=== PATIENT | female | born 1935 | race Caucasian/White ===

== ENCOUNTER 2018-10-26 15:11 | Inpatient (IN) | payer OTHER, MEDICARE ==
--- NOTE | 2018-10-26 15:17 | PDOC ---
Rapid Medical Evaluation Time Seen by Provider: 10/26/18 15:14 Medical Evaluation: Allergies Allergy/AdvReac Type Severity Reaction Status Date / Time No Known Drug Allergies Allergy Unknown Verified 08/01/12 11:42 MOLD Allergy RESP Uncoded 08/01/12 11:42 SYMPTOMS lactose intolerance AdvReac Unknown Difficulty Uncoded 08/01/12 11:42 Breathing 10/26/18 15:14 I have performed a brief in-person evaluation of this patient. The patient presents with a chief complaint of: Sent in by PCP Dr Kc for work up of progressive SOB Pertinent physical exam findings: SOB conversationally SOB I have ordered the following:Nebs, SOB, cardiac w/u labs septic W/U 10/26/18 15:17 Discharge Disposition - Diagnosis SOB (shortness of breath) - Referrals - Patient Instructions - Post Discharge Activity
[2018-10-26] MEDS ORDERED: ALBUTEROL SO4 2.5/IPRATROPIUM 0.5 INH SOL 3 ML VIAL.NEB. NEB ONE ×2 (15:44→16:24)
[2018-10-26 15:49] LABS: EOS % 0.2 % (0-4.5); HEMATOCRIT 34.2 % (32.4-45.2); HEMOGLOBIN 11.6 GM/dL (10.7-15.3); LYMPH % 9.1 % (8-40); MCH 28.9 pg (25.7-33.7); MCHC 33.9 g/dl (32.0-36.0); MEAN CELL VOLUME 85.3 fl (80-96); MEAN PLT VOLUME 8.5 fl (7.5-11.1); MONO % 5.7 % (3.8-10.2); PLATELET COUNT 229 K/MM3 (134-434); RBC 4.01 M/mm3 (3.60-5.2); RDW 14.8 % (11.6-15.6)
[2018-10-26] MEDS: ALBUTEROL SO4 2.5/IPRATROPIUM 0.5 INH SOL 3 ML VIAL.NEB. NEB SCH ×5 (15:51→20:45)
[2018-10-26 15:52] LABS: VENOUS PH 7.37 (7.31-7.41); VENOUS PO2 19.5 mmHg (30-40)
--- NOTE | 2018-10-26 16:06 | PDOC ---
History of Present Illness <Stefany Moody - Last Filed: 10/26/18 18:15> - General History Source: Patient Exam Limitations: No Limitations - History of Present Illness Initial Comments: 10/26/18 18:02 The patient is 82 year old female with a significant past medical history of chronic asthma, COPD not on O2, DM type 2, HTN, Arthritis, TB s/p rt upper lobectomy and CAD s/p CABG who presents to the ER from Dr. Osullivan office for 1 month of progressive malaise and generalized weakness. The patient notes that she has been experiencing SOB and respiratory distress for several days but worsened yesterday. The patient notes her SOB is worsened by talking and exertion. The patient notes she has been endorsing Left rib cage pain worse with movement/coughing, chest pain, chills, and productive yellow cough since this morning, secondary to her symptoms. The patient notes she had a low grade fever of 99.7 at home. The patient states she did not take any pain medication at home. No recent abx. no environmental triggers, does have allergies to mold and gets immunotherapy shots Q3 weeks with Dr Lazcano. Denies N, V, D, abdominal pain, bladder and bowel problems, leg swelling, No sick contacts or travel. No new changes in medications. Allergies: NKDA Past Medical History: chronic asthma, COPD, DM, HTN, Arthritis, TB and CABG Social history: Lives with family. No smoking. No alcohol. No illicit drugs. Surgical history: CABG, Rt LOBECTOMY PMD: Chris Lang 10/26/18 18:11 10/27/18 18:49 <Griselda Woods - Last Filed: 10/27/18 18:51> - General Chief Complaint: Shortness of Breath Stated Complaint: SENT BY PCP Time Seen by Provider: 10/26/18 15:14 Past History <Stefany Moody - Last Filed: 10/26/18 18:15> - Past Medical History Anemia: No Asthma: Yes Cancer: No Cardiac Disorders: Yes COPD: Yes Diabetes: Yes HTN: Yes Hypercholesterolemia: Yes Kidney Stones: Yes - Surgical History Cardiac Surgery: Yes (CABG) Cholecystectomy: Yes Lung Surgery: Yes (R. Lobectomy) - Suicide/Smoking/Psychosocial Hx Smoking Status: Yes Smoking History: Former smoker Have you smoked in the past 12 months: No Number of Cigarettes Smoked Daily: 0 Cigars Per Day: 0 Information on smoking cessation initiated: No Hx Alcohol Use: No Drug/Substance Use Hx: No Substance Use Type: Alcohol Hx Substance Use Treatment: No <Griselda Woods - Last Filed: 10/27/18 18:51> - Past Medical History Allergies/Adverse Reactions: Allergies Allergy/AdvReac Type Severity Reaction Status Date / Time No Known Drug Allergies Allergy Unknown Verified 10/26/18 15:14 MOLD Allergy RESP Uncoded 10/26/18 15:14 SYMPTOMS lactose intolerance AdvReac Unknown Difficulty Uncoded 10/26/18 15:14 Breathing Home Medications: Ambulatory Orders Unobtainable 10/26/18 Review of Systems - Review of Systems Able to Perform ROS?: Yes Comments:: 10/26/18 18:04 Review of systems Constitutional: (+) chills (+) low grade fever at home. (+) fatigue and weakness. HEENT: no headache or dizziness. No congestion. No visual/hearing disturbances. No sore throat, no ear pain. +chronic hoarse voice. CVS: no syncope. +chest pain. Resp: (+)sob. (+) productive cough. No wheezing or hemoptysis Gastrointestinal: no abdominal pain, nausea or vomiting. Genitourinary: no urinary sx, hematuria. MUSCULOSKELETAL:No joint pain and swelling. No neck or back pain. SKIN: no redness or skin changes, no discharge, no rash. No wounds. Hematologic: no easy bruising/bleeding. NEUROLOGIC: No headache, dizziness, LOC or altered mental status. No weakness, numbness or tingling. Allergic/Immunologic: no allergies All other systems reviewed and negative, or as documented in HPI. <Griselda Woods - Last Filed: 10/27/18 18:51> *Physical Exam - Vital Signs Last Vital Signs Temp Pulse Resp BP Pulse Ox 98.7 F 118 H 22 H 158/62 97 10/26/18 15:16 10/26/18 15:16 10/26/18 15:16 10/26/18 15:16 10/26/18 15:16 <Stefany Moody - Last Filed: 10/26/18 18:15> - Vital Signs Last Vital Signs Temp Pulse Resp BP Pulse Ox 98.7 F 118 H 22 H 158/62 97 10/26/18 15:16 10/26/18 15:16 10/26/18 15:16 10/26/18 15:16 10/26/18 15:16 - Physical Exam Comments: 10/26/18 18:12 Physical exam: General: Well appearing, awake and alert, NAD. HEENT: NCAT, PERRL, EOMI, clear conjunctiva, anicteric, moist mucous membranes , clear oropharynx, no oral lesions.. high pitched phonation. Neck: neck supple, FROM Chest: (+)anterior sternotomy scar. (+) right upper lobectomy scar on right upper back. Resp: CTAB, normal and even respirations, no respiratory distress, faint coarse breath sounds with expiration. CVS: +tachycardic, no murmurs, 2+ peripheral pulses throughout, no peripheral edema Abdomen: soft, NTND, no peritoneal signs. Back: nontender, normal inspection and ROM MSK: no edema, DONALD x4, ROM intact. No clubbing or cyanosis. normal bulk and tone. Extremities: no calf tenderness Neuro: alert, oriented appropriately; no focal neurologic deficits Skin: warm and well perfused, cap refill <2 sec, normal color 10/27/18 18:49 <Griselda Woods - Last Filed: 10/27/18 18:51> Moderate Sedation - Procedure Monitoring Vital Signs: Procedure Monitoring Vital Signs Temperature 98.7 F 10/26/18 15:16 Pulse Rate 118 H 10/26/18 15:16 Respiratory Rate 22 H 10/26/18 15:16 Blood Pressure 158/62 10/26/18 15:16 O2 Sat by Pulse Oximetry (%) 97 10/26/18 15:16 <Stefany Moody - Last Filed: 10/26/18 18:15> - Procedure Monitoring Vital Signs: Procedure Monitoring Vital Signs Temperature 98.7 F 10/26/18 15:16 Pulse Rate 118 H 10/26/18 15:16 Respiratory Rate 22 H 10/26/18 15:16 Blood Pressure 158/62 10/26/18 15:16 O2 Sat by Pulse Oximetry (%) 97 10/26/18 15:16 <Griselda Woods - Last Filed: 10/27/18 18:51> Heart Score/ECG Review - ECG Intrepretation Rhythm: Regular Rhythm Comment:: 10/26/18 18:08 EKG normal sinus rhythm, no interval abnormalities, narrow QRS, ST and T wave segments and morphology normal. Nonspecific T wave abnormalities <Griselda Woods - Last Filed: 10/27/18 18:51> ED Treatment Course - LABORATORY CBC & Chemistry Diagram: 10/26/18 15:36 10/26/18 15:36 - ADDITIONAL ORDERS Additional order review: Laboratory Results 10/26/18 10/26/18 10/26/18 15:38 15:36 15:36 PT with INR INR PTT (Actin FS) VBG pH 7.37 POC VBG pCO2 49.0 POC VBG pO2 19.5 L VBG HCO3 27.5 VBG O2 Sat (Sree) 26.4 L VBG Base Excess 2.0 Sodium 132 L Potassium 4.8 Chloride 97 L Carbon Dioxide 25 Anion Gap 10 BUN 24 H Creatinine 1.2 Creat Clearance w eGFR 43.01 Random Glucose 136 H Lactic Acid 1.4 Calcium 8.9 Total Bilirubin 0.5 AST 20 ALT 14 Alkaline Phosphatase 62 Creatine Kinase 66 Troponin I < 0.02 Total Protein 7.2 Albumin 3.5 10/26/18 15:36 PT with INR 12.40 INR 1.05 PTT (Actin FS) 25.7 VBG pH POC VBG pCO2 POC VBG pO2 VBG HCO3 VBG O2 Sat (Sree) VBG Base Excess Sodium Potassium Chloride Carbon Dioxide Anion Gap BUN Creatinine Creat Clearance w eGFR Random Glucose Lactic Acid Calcium Total Bilirubin AST ALT Alkaline Phosphatase Creatine Kinase Troponin I Total Protein Albumin 10/26/18 15:36 RBC 4.01 MCV 85.3 MCHC 33.9 RDW 14.8 MPV 8.5 Neutrophils % 84.0 H Lymphocytes % 9.1 D Monocytes % 5.7 Eosinophils % 0.2 Basophils % 1.0 - Medications Given in the ED: ED Medications Discontinued Medications Generic Name Dose Route Start Last Admin Trade Name Freq PRN Reason Stop Dose Admin Albuterol/Ipratropium 1 amp 10/26/18 15:30 10/26/18 16:31 Duoneb - NEB 10/26/18 16:16 1 amp Q15M TISHA Administration Albuterol/Ipratropium 1 amp 10/26/18 16:30 10/26/18 16:46 Duoneb - NEB 10/26/18 16:46 1 amp Q15M TISHA Administration <Stefany Moody - Last Filed: 10/26/18 18:15> - LABORATORY CBC & Chemistry Diagram: 10/27/18 06:00 10/27/18 06:00 - ADDITIONAL ORDERS Additional order review: Laboratory Results 10/26/18 15:36 VBG pH 7.37 POC VBG pCO2 49.0 POC VBG pO2 19.5 L VBG HCO3 27.5 VBG O2 Sat (Sree) 26.4 L VBG Base Excess 2.0 10/26/18 15:36 RBC 4.01 MCV 85.3 MCHC 33.9 RDW 14.8 MPV 8.5 Neutrophils % 84.0 H Lymphocytes % 9.1 D Monocytes % 5.7 Eosinophils % 0.2 Basophils % 1.0 <Griselda Woods - Last Filed: 10/27/18 18:51> Medical Decision Making - Medical Decision Making 10/26/18 17:57 I, Griselda Woods MD, attest that this document has been prepared under my direction and personally reviewed by me in its entirety. I further attest, that it accurately reflects all work, treatment, procedures and medical decision -making performed by me. See HPI for details DDx. influenza, viral syndrome, PNA, COPD, asthma exac. anemia, infection, electrolyte/metabolic derangements. Vital signs reviewed, no fever orally, but , mildly tachy and tachypneic, will repeat VS and and rectal temp elevated >101 as etiology for tachy Prior notes reviewed, including admissions, discharges and consultations. laboratory results and imaging reviewed, basic labs and lytes wnl, notable for + leukocytosis - unclear etiology. blood cultures pending. flu test_neg UA_unremarkable CXR_ pleural thickening/chronic changes noted. CT chest to further delineate. Cardiac panel_neg trop EKG normal sinus rhythm, no interval abnormalities, narrow QRS, ST and T wave segments and morphology normal. Nonspecific T wave abnormalities ED course - given duonebs and IV steroids. reassess, breathing improved. - IV ceftriaxone and azithromycin - for pna treatment. - tylenol for fever control, septic workup pending, but pt appears nontoxic, only malaised. repeat VS after antipyretics. - spoke with Dr Kc, agree with plan, infectious workup and copd/asthma treatment. admit for continued medical management. 10/26/18 18:21 10/27/18 18:50 <Griselda Woods - Last Filed: 10/27/18 18:51> *DC/Admit/Observation/Transfer - Attestations Scribe Attestion: 10/26/18 18:15 Documentation prepared by Stefany Moody, acting as medical affairs leader for Griselda Woods MD, MD <Stefany Moody - Last Filed: 10/26/18 18:15> - Discharge Dispostion Decision to Admit order: Yes Decision to Admit order Date/Time: 10/26/18 18:13 Decision to Admit Order Category Date Time Status Decision to Admit to Hospital Routine Admission 10/26/18 18:06 Ordered <Griselda Woods - Last Filed: 10/27/18 18:51> Diagnosis at time of Disposition: SOB (shortness of breath), COPD (chronic obstructive pulmonary disease), Pneumonia, Febrile illness Asthma Qualifiers: Asthma severity: unspecified severity Asthma complication type: with acute exacerbation - Discharge Dispostion Condition at time of disposition: Guarded
[2018-10-26 16:12] LABS: INR 1.05 (0.83-1.09); PROTHROMBIN TIME (PATIENT) 12.4 SEC (9.7-13.0)
[2018-10-26 16:15] LABS: ACTIVATED PTT 25.7 SECONDS (25.2-36.5)
[2018-10-26 16:42] LABS: ALBUMIN 3.5 g/dl (3.4-5.0); ALK PHOS 62 U/L (45-117); ANION GAP 10 MMOL/L (8-16); BILIRUBIN,TOTAL 0.5 mg/dL (0.2-1); BLOOD UREA NITROGEN 24 mg/dL (7-18); CALCIUM 8.9 mg/dL (8.5-10.1); CHLORIDE 97 mmol/L (98-107); CO2 25 mmol/L (21-32); CREATININE 1.2 mg/dL (0.55-1.3); GLUCOSE,RANDOM 136 mg/dL (74-106); POTASSIUM 4.8 mmol/L (3.5-5.1); SGOT/AST 20 U/L (15-37); SGPT/ALT 14 U/L (13-61); SODIUM 132 mmol/L (136-145); TOT PROT 7.2 g/dl (6.4-8.2)
[2018-10-26] MEDS ORDERED: CEFTRIAXONE 1,000 MG in DEXTROSE 5%-WATER - 50 ML IVPB ONE (17:58)
[2018-10-26] MEDS ORDERED: AZITHROMYCIN 500 MG TABLET PO ONE (17:58)
[2018-10-26] MEDS ORDERED: SODIUM CHLORIDE 0.9% 500 ML INFUS.BAG IV ONE (18:03)
[2018-10-26] MEDS ORDERED: ACETAMINOPHEN 325 MG TABLET (FP) PO ONE ×2 (18:03→18:20)
[2018-10-26] MEDS ORDERED: methylPREDNISolone NA SUCC 125 MG/2 ML VIAL IVPUSH ONE (18:06)
[2018-10-26] MEDS ORDERED: methylPREDNISolone NA SUCC 125 MG/2 ML VIAL ONE (18:46)
[2018-10-26] MEDS ORDERED: AZITHROMYCIN 250 MG TABLET ONE (18:46)
[2018-10-26] MEDS ORDERED: CEFTRIAXONE 1 GM/50 ML BAG ONE (18:46)
[2018-10-26] MEDS ORDERED: ACETAMINOPHEN 325 MG TABLET (FP) ONE (18:46)
[2018-10-26 19:52] LABS: EPI CELLS 2.8 /HPF (0-5); URINE APPEARANCE CLEAR; URINE BACTERIA 6.426 /hpf (NEGATIVE); URINE BILIRUBIN NEGATIVE (<2.0 mg/dL); URINE CASTS 7 /hpf (0-8); URINE COLOR YELLOW; URINE GLUCOSE (UA) NEGATIVE (NEGATIVE); URINE KETONE 1+ (NEGATIVE); URINE LEUK ESTERASE TRACE (NEGATIVE); URINE NITRITE NEGATIVE (NEGATIVE); URINE PROTEIN NEGATIVE (NEGATIVE); URINE RBC 2 /hpf (0-4); URINE WBC 1 /hpf (0-5)
[2018-10-26] MEDS ORDERED: ACETAMINOPHEN 500 MG TABLET (FP) PO PRN (21:32)
[2018-10-26] MEDS: methylPREDNISolone NA SUCC 40 MG/1 ML VIAL IVPUSH SCH (21:33)
[2018-10-26] MEDS: SODIUM CHLORIDE 1,000 ML IV SCH (21:33)
[2018-10-26] MEDS ORDERED: CEFTRIAXONE 1 GM in DEXTROSE 5%-WATER - 50 ML IVPB ONE (21:45)
[2018-10-27] MEDS: methylPREDNISolone NA SUCC 40 MG/1 ML VIAL IVPUSH SCH ×3 (03:08→18:13)
[2018-10-27] MEDS ORDERED: cefTRIAXone SODIUM 1 GM VIAL ONE (06:13)
[2018-10-27] MEDS ORDERED: DEXTROSE 5%-WATER - 50 ML IVPB ONE (06:14)
[2018-10-27] MEDS ORDERED: CEFTRIAXONE 1 GM in DEXTROSE 5%-WATER - 50 ML IVPB ONE (06:15)
[2018-10-27] MEDS ORDERED: PT OWN MED DRAWER 7, Y5N ONE (06:44)
[2018-10-27] MEDS ORDERED: INSULIN (NOVOLOG) ASPART 100 UNITS/ML 10ML VIAL ONE (07:06)
[2018-10-27 07:27] LABS: MCH 28.5 pg (25.7-33.7); MCHC 33.4 g/dl (32.0-36.0); MEAN CELL VOLUME 85.1 fl (80-96); MEAN PLT VOLUME 8.7 fl (7.5-11.1); PLATELET COUNT 208 K/MM3 (134-434); RBC 3.88 M/mm3 (3.60-5.2); RDW 14.6 % (11.6-15.6); WHITE BLOOD COUNT 13.1 K/mm3 (4.0-10.0)
[2018-10-27] MEDS: ALBUTEROL SO4 2.5/IPRATROPIUM 0.5 INH SOL 3 ML VIAL.NEB. NEB SCH ×3 (07:33→21:40)
[2018-10-27] MEDS: INSULIN SLIDING SCALE (NOVOLOG) 1 VIAL SQ SCH ×4 (07:35→21:17)
[2018-10-27 07:51] LABS: ANION GAP 8 MMOL/L (8-16); BLOOD UREA NITROGEN 21 mg/dL (7-18); CALCIUM 8.4 mg/dL (8.5-10.1); CHLORIDE 100 mmol/L (98-107); CO2 24 mmol/L (21-32); CREATININE 0.9 mg/dL (0.55-1.3); POTASSIUM 4.6 mmol/L (3.5-5.1); SODIUM 132 mmol/L (136-145)
[2018-10-27 08:16] VITALS: BMI 20.1
[2018-10-27] MEDS: PANTOPRAZOLE 40 MG TABLET (FP) PO SCH (09:21)
[2018-10-27] MEDS: AZITHROMYCIN 250 MG TABLET PO SCH (09:25)
[2018-10-27] MEDS: ENOXAPARIN NA (PORCINE) 30 MG/0.3 ML DISP.SYRIN SQ SCH (09:25)
[2018-10-27] MEDS: LISINOPRIL 5 MG TABLET (FP) PO SCH (09:41)
[2018-10-27 09:42] LABS: GLUCOSE,RANDOM 305 mg/dL (74-106)
[2018-10-27] MEDS ORDERED: amLODIPine BESYLATE 2.5 MG TABLET (FP) PO SCH (10:00)
--- NOTE | 2018-10-27 10:56 | HP ---
Admitting History and Physical - Primary Care Physician PCP: Chris Kc - Admission Chief Complaint: feels sick and weak History of Present Illness: The patient is 82 year old female with a significant past medical history of chronic asthma/bronchitis, COPD not on O2, DM type 2, HTN, Arthritis, old TB (s/ p lobectomy in ) and CAD (s/p CABG) who presents to the ER from Dr. Osullivan office c/o 1 month of progressive malaise and generalized weakness along with cough productive of discolored mucous. She did not seek any medical attention in the past month while she began to feel ill as such. The patient notes that she has been experiencing SOB and respiratory distress for several days but worsened [address]. The patient notes her SOB is easily worsened by talking and exertion. The patient notes she has been having Left posterior rib cage pain worse with movement/coughing. The patient notes she had a low grade fever of 99.7 at home. The patient states she did not take any pain medication at home. No recent abx. no environmental triggers, does have allergies to mold ( and gets immunotherapy shots Q3 weeks). She denies N, V, D, abdominal pain, bladder and bowel problems, leg swelling, No sick contacts or travel. No new changes in medications. She last saw an MD in late Sep (Dr Núñez--her remodeler) . 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 ) Psych: Yes: Anxiety, Other (RLS) Musculoskeletal: Yes: Osteoarthritis (spine) ENT: Yes: Sinusitis Endocrine: Yes: Diabetes Mellitus - Past Surgical History Past Surgical History: Yes: CABG, Cataract Removal Additional Past Surgical History: thoracotomy Rt lung - Smoking History Smoking history: Former smoker Have you smoked in the past 12 months: No Aproximately how many cigarettes per day: 0 - Alcohol/Substance Use Hx Alcohol Use: No History of Substance Use: reports: None - Social History Usual Living Arrangement: Yes: Alone ADL: Independent History of Recent Travel: No Home Medications - Allergies Allergies/Adverse Reactions: Allergies Allergy/AdvReac Type Severity Reaction Status Date / Time No Known Drug Allergies Allergy Unknown Verified 10/26/18 15:14 MOLD Allergy RESP Uncoded 10/26/18 15:14 SYMPTOMS lactose intolerance AdvReac Unknown Difficulty Uncoded 10/26/18 15:14 Breathing - Home Medications Home Medications: Ambulatory Orders Unobtainable 10/26/18 Family Disease History - Family Disease History Family History: Unremarkable Review of Systems - Review of Systems Constitutional: reports: Weakness Eyes: reports: No Symptoms HENT: reports: Nasal Congestion Neck: reports: No Symptoms Cardiovascular: reports: Shortness of Breath Respiratory: reports: Cough, SOB, SOB on Exertion, Wheezing Gastrointestinal: reports: No Symptoms Genitourinary: reports: No Symptoms Breasts: reports: No Symptoms Reported Musculoskeletal: reports: No Symptoms Integumentary: reports: No Symptoms Neurological: reports: Weakness Endocrine: reports: No Symptoms Hematology/Lymphatic: reports: No Symptoms Psychiatric: reports: Altered Sleep Pattern (fatigue) Physical Examination Vital Signs: Vital Signs Temperature 98 F 10/26/18 21:00 Pulse Rate 111 H 10/26/18 21:00 Respiratory Rate 18 10/26/18 21:00 Blood Pressure 106/60 10/26/18 21:00 O2 Sat by Pulse Oximetry (%) 94 L 10/26/18 20:02 Findings/Remarks: Vital Signs Temperature 98 F 10/26/18 21:00 Pulse Rate 111 H 10/26/18 21:00 Respiratory Rate 18 10/26/18 21:00 Blood Pressure 106/60 10/26/18 21:00 O2 Sat by Pulse Oximetry (%) 94 L 10/26/18 20:02 found awake and ambulatory in her room fully alert skin--pale eyes--anicteric; non injected oral--no mucosal lesions neck--no masses; raspy voice lungs--bilat sabianism sounds heart--rapid RR chest--sternotomy scar; old Rt throacotomy scar breasts--(declined) abd--soft, BS+, NT ext--no CCE; no acute ischemic changes back--no CVAT neuro--alert in NAD; anxious; speech clear & fluent, no gross motor/sens deficits; no ataxia; cognition grossly intact; thoughts well organized Labs: CBC, BMP 10/27/18 06:00 10/27/18 06:00 Imaging - Results Chest X-ray: Report Reviewed EKG: Report Reviewed Problem List - Problems (1) Asthma Assessment/Plan: presented with labored resp with easy BARRIOS along with malaise, low grade fever; and prod cough. Known Hx of chronic asthma (for which she gets immune Tx). PLAN : IV steroids; Neb TX; IV Abs. Order chest CT Code(s): J45.909 - UNSPECIFIED ASTHMA, UNCOMPLICATED Qualifiers: Asthma severity: unspecified severity Asthma complication type: with acute exacerbation (2) Hypertensive heart disease Assessment/Plan: BPs have been stable and w/o evidence of CHF. BP on low end today. PLAN: cont TIANNA-I only Code(s): I11.9 - HYPERTENSIVE HEART DISEASE WITHOUT HEART FAILURE Qualifiers: Heart failure presence: without heart failure Qualified Code(s): I11.9 - Hypertensive heart disease without heart failure (3) Tachycardia with heart rate 100-120 beats per minute Assessment/Plan: sinus tach; HR a bit over 100; she denies CP or SOB today. Noted low TSH. No signs of CHF. PLAN: check T4 & T3 Code(s): R00.0 - TACHYCARDIA, UNSPECIFIED (4) T2DM (type 2 diabetes mellitus) Assessment/Plan: lonstanding; has been well controlled with Metf & Nateglide at home. PLAN: BGM' s w/ ins coverage; High GLUCOSE to be expected in face of IV steroid infusions Code(s): E11.9 - TYPE 2 DIABETES MELLITUS WITHOUT COMPLICATIONS Qualifiers: Diabetes mellitus complication status: with unspecified complications (5) Restless leg syndrome Assessment/Plan: cont ropinorole Code(s): G25.81 - RESTLESS LEGS SYNDROME (6) Hx of tuberculosis Assessment/Plan: states that she had a tuberculoma removed in the s from the RT lung; with no subsequent recurrent disease. She has not (over the years) ever displayed any Sx of active TB as all her URI bouts responded to anti-bacterial meds. Code(s): Z86.11 - PERSONAL HISTORY OF TUBERCULOSIS (7) Multiple environmental allergies Assessment/Plan: includes certain dusts and molds; as well as some food allergies that serve to worsen her asthma & bronchitis Code(s): Z91.09 - OTH ALLERGY STATUS, OTH THAN TO DRUGS AND BIOLG SUBSTANCES (8) Carotid artery stenosis Assessment/Plan: non critical stenosis; longstanding; cont ASA Code(s): I65.29 - OCCLUSION AND STENOSIS OF UNSPECIFIED CAROTID ARTERY Qualifiers: Laterality: bilateral Qualified Code(s): I65.23 - Occlusion and stenosis of bilateral carotid arteries (9) Abnormal chest xray Assessment/Plan: not new; will get chest CT for better clarity. Code(s): R93.89 - ABNORMAL FINDINGS ON DX IMAGING OF OTH BODY STRUCTURES (10) Lives alone without help available Assessment/Plan: lives in senior housing independantly; however, does not have immediate help in the even of sudden illness Code(s): Z60.2 - PROBLEMS RELATED TO LIVING ALONE (11) History of URI (upper respiratory infection) Assessment/Plan: as described Code(s): Z87.09 - PERSONAL HISTORY OF OTHER DISEASES OF THE RESPIRATORY SYSTEM Assessment/Plan 83 YO acutely ill F with chronic asthma, and multiple c-morbidities. Pt w/o high WBC (prone to URI's) and exacerb of asthma who will need IV therapy as stated. ~~~~~~~~~~~~~~~~~~ Dr Kc
--- NOTE | 2018-10-27 16:41 | EKG ---
Test Reason : Blood Pressure : / mmHG Vent. Rate : 107 BPM Atrial Rate : 107 BPM P-R Int : 156 ms QRS Dur : 086 ms QT Int : 338 ms P-R-T Axes : 076 086 052 degrees QTc Int : 451 ms SINUS TACHYCARDIA WITH PREMATURE ATRIAL COMPLEXES ANTERIOR INFARCT (CITED ON OR BEFORE 16-JUL-2016) ABNORMAL ECG WHEN COMPARED WITH ECG OF 16-JUL-2016 09:41, PREMATURE VENTRICULAR COMPLEXES ARE NO LONGER PRESENT PREMATURE ATRIAL COMPLEXES ARE NOW PRESENT QUESTIONABLE CHANGE IN INITIAL FORCES OF ANTERIOR LEADS Confirmed by MARILU JEAN MD ([id number]) on 10/27/2018 4:40:47 PM Referred By: Confirmed By:MARILU JEAN MD
[2018-10-27] MEDS: SODIUM CHLORIDE 1,000 ML IV SCH (21:17)
[2018-10-27] MEDS: rOPINIRole HCL 0.5 MG TABLET PO SCH (22:27)
[2018-10-28] MEDS: methylPREDNISolone NA SUCC 40 MG/1 ML VIAL IVPUSH SCH ×2 (01:00→10:00)
[2018-10-28] MEDS: SODIUM CHLORIDE 1,000 ML IV SCH ×2 (01:00→22:13)
[2018-10-28] MEDS: INSULIN SLIDING SCALE (NOVOLOG) 1 VIAL SQ SCH ×4 (06:06→22:18)
[2018-10-28 07:31] LABS: HEMATOCRIT 30.2 % (32.4-45.2); HEMOGLOBIN 10.3 GM/dL (10.7-15.3); MCH 28.6 pg (25.7-33.7); MCHC 33.9 g/dl (32.0-36.0); MEAN CELL VOLUME 84.2 fl (80-96); MEAN PLT VOLUME 8.8 fl (7.5-11.1); PLATELET COUNT 222 K/MM3 (134-434); RBC 3.59 M/mm3 (3.60-5.2); RDW 14.4 % (11.6-15.6); WHITE BLOOD COUNT 16.6 K/mm3 (4.0-10.0)
[2018-10-28] MEDS: ALBUTEROL SO4 2.5/IPRATROPIUM 0.5 INH SOL 3 ML VIAL.NEB. NEB SCH ×3 (07:48→20:09)
[2018-10-28 07:52] LABS: ANION GAP 7 MMOL/L (8-16); BLOOD UREA NITROGEN 15 mg/dL (7-18); CALCIUM 8.3 mg/dL (8.5-10.1); CHLORIDE 100 mmol/L (98-107); CO2 26 mmol/L (21-32); CREATININE 0.7 mg/dL (0.55-1.3); GLUCOSE,RANDOM 213 mg/dL (74-106); MAGNESIUM 2.2 mg/dL (1.8-2.4); POTASSIUM 4.2 mmol/L (3.5-5.1); SODIUM 133 mmol/L (136-145)
[2018-10-28] MEDS ORDERED: PT OWN MED DRAWER 7, Y5N ONE (08:00)
[2018-10-28] MEDS: PANTOPRAZOLE 40 MG TABLET (FP) PO SCH (09:59)
[2018-10-28] MEDS: LISINOPRIL 5 MG TABLET (FP) PO SCH (09:59)
[2018-10-28] MEDS: AZITHROMYCIN 250 MG TABLET PO SCH (10:00)
[2018-10-28] MEDS: ENOXAPARIN NA (PORCINE) 30 MG/0.3 ML DISP.SYRIN SQ SCH (10:00)
[2018-10-28] MEDS ORDERED: ZOLPIDEM TARTRATE 5 MG TABLET PO PRN (14:33)
--- NOTE | 2018-10-28 14:48 | PN ---
Progress Note (short form) - Note Progress Note: medical 8 Current Medications Acetaminophen (Tylenol -) 500 mg PO Q6H PRN PRN Reason: FEVER Albuterol/Ipratropium (Duoneb -) 1 amp NEB RTID [facility] Last Admin: 10/28/18 07:48 Dose: 1 amp Azithromycin (Zithromax -) 500 mg PO DAILY [facility] Stop: 10/29/18 10:01 Last Admin: 10/28/18 10:00 Dose: 500 mg Enoxaparin Sodium (Lovenox -) 30 mg SQ DAILY [facility] Last Admin: 10/28/18 10:00 Dose: 30 mg Guaifenesin (Robitussin -) 10 ml PO BID [facility] Sodium Chloride (Normal Saline -) 1,000 mls @ 42 mls/hr IV ASDIR [facility] Last Admin: 10/28/18 01:00 Dose: 42 mls/hr Insulin Aspart (Novolog Vial Sliding Scale -) 1 vial SQ ACHS [facility]; Protocol Last Admin: 10/28/18 12:00 Dose: 3 units Lisinopril (Prinivil) 5 mg PO DAILY [facility] Last Admin: 10/28/18 09:59 Dose: 5 mg Magnesium Chloride (Slow-Mag -) 64 mg PO HS [facility] Metformin HCl (Glucophage Xr -) 750 mg PO DAILY@0700 [facility] Last Admin: 10/28/18 06:06 Dose: 750 mg Methylprednisolone Sodium Succinate (Solu-Medrol -) 40 mg IVPB Q8H [facility] Pantoprazole Sodium (Protonix -) 40 mg PO DAILY [facility] Last Admin: 10/28/18 09:59 Dose: 40 mg Ropinirole HCl (Requip -) 0.5 mg PO HS [facility] Last Admin: 10/27/18 22:27 Dose: 0.5 mg Zolpidem Tartrate (Ambien -) 5 mg PO HS PRN PRN Reason: INSOMNIA Laboratory Results - last 24 hr 10/27/18 10/27/18 10/28/18 18:12 21:08 05:36 WBC RBC Hgb Hct MCV MCH MCHC RDW Plt Count MPV Sodium Potassium Chloride Carbon Dioxide Anion Gap BUN Creatinine Creat Clearance w eGFR POC Glucometer 256 272 215 Random Glucose Calcium Magnesium Free T4 10/28/18 10/28/18 10/28/18 06:00 06:00 12:00 WBC 16.6 H RBC 3.59 L Hgb 10.3 L Hct 30.2 L MCV 84.2 MCH 28.6 MCHC 33.9 RDW 14.4 Plt Count 222 MPV 8.8 Sodium 133 L Potassium 4.2 Chloride 100 Carbon Dioxide 26 Anion Gap 7 L BUN 15 Creatinine 0.7 Creat Clearance w eGFR 79.91 POC Glucometer 252 Random Glucose 213 H Calcium 8.3 L Magnesium 2.2 Free T4 1.22 Vital Signs Temperature 98 F 10/28/18 09:00 Pulse Rate 106 H 10/28/18 09:00 Respiratory Rate 18 10/28/18 09:00 Blood Pressure 141/64 10/28/18 09:00 O2 Sat by Pulse Oximetry (%) 100 10/28/18 09:00 CC: ongoing Lt flank discomfort; worse when moves; not coughing as much; less SOB; feels better in general ```````````````````````````````````````````````` skin--good color eyes--midline; EOMI lungs--distant BS; some holiness sounds heard bilat back--some Lt CVAT ext--no edema neuro--alert; verbal in NAD; no focal deficits `````````````````````````````````````````` summ > COPD/asthma exacerb--feeling better breathing bullock. PLAN: cont currents meds; will lower dose of steroid; await chest CT report; add Foster expect > HTN--BP in fair range; will not give Amlodpine in view of fast HR; may increase lisinopril if needed. > DM--BS over 200; likely 2nd steroid effect; cont coverage w/ insulin for now > RLS--not helped much with Ropinerole; will restart low dose magsulfate > Insomnia--multifactorial; start Ambien > UTI--as per prelim report; already on Rocephiin; non ill or toxic; will wait for full report > High WBC- was 17K on admission then came down; now at 16K; but this could be a steroid effect as well. No report of diarrhea, and has no fever. > anemia--slight drop in H/H; could be due to acute illness; will check daily counts. PLAN: cont PPi for now. ~~~~~~~~~~~~~~~~~ Dr Kc Problem List - Problems (1) Asthma Code(s): J45.909 - UNSPECIFIED ASTHMA, UNCOMPLICATED Qualifiers: Asthma severity: unspecified severity Asthma complication type: with acute exacerbation (2) Hypertensive heart disease Code(s): I11.9 - HYPERTENSIVE HEART DISEASE WITHOUT HEART FAILURE Qualifiers: Heart failure presence: without heart failure Qualified Code(s): I11.9 - Hypertensive heart disease without heart failure (3) Tachycardia with heart rate 100-120 beats per minute Code(s): R00.0 - TACHYCARDIA, UNSPECIFIED (4) T2DM (type 2 diabetes mellitus) Code(s): E11.9 - TYPE 2 DIABETES MELLITUS WITHOUT COMPLICATIONS Qualifiers: Diabetes mellitus complication status: with unspecified complications (5) Restless leg syndrome Code(s): G25.81 - RESTLESS LEGS SYNDROME (6) Hx of tuberculosis Code(s): Z86.11 - PERSONAL HISTORY OF TUBERCULOSIS (7) Multiple environmental allergies Code(s): Z91.09 - OTH ALLERGY STATUS, OTH THAN TO DRUGS AND BIOLG SUBSTANCES (8) Carotid artery stenosis Code(s): I65.29 - OCCLUSION AND STENOSIS OF UNSPECIFIED CAROTID ARTERY Qualifiers: Laterality: bilateral Qualified Code(s): I65.23 - Occlusion and stenosis of bilateral carotid arteries (9) Abnormal chest xray Code(s): R93.89 - ABNORMAL FINDINGS ON DX IMAGING OF OTH BODY STRUCTURES (10) Lives alone without help available Code(s): Z60.2 - PROBLEMS RELATED TO LIVING ALONE (11) History of URI (upper respiratory infection) Code(s): Z87.09 - PERSONAL HISTORY OF OTHER DISEASES OF THE RESPIRATORY SYSTEM
[2018-10-28] MEDS: methylPREDNISolone NA SUCC 40 MG/1 ML VIAL IVPB SCH (17:25)
[2018-10-28] MEDS: MAGNESIUM CL 64 MG TABLET.SA PO SCH (22:12)
[2018-10-28] MEDS: rOPINIRole HCL 0.5 MG TABLET PO SCH (22:13)
[2018-10-28] MEDS: guaiFENesin 200 MG/10 ML 10 ML UNIT-DOSE CUPS PO SCH (22:13)
[2018-10-29] MEDS: methylPREDNISolone NA SUCC 40 MG/1 ML VIAL IVPB SCH ×3 (02:16→18:00)
[2018-10-29] MEDS: SODIUM CHLORIDE 1,000 ML IV SCH (05:45)
[2018-10-29] MEDS: INSULIN SLIDING SCALE (NOVOLOG) 1 VIAL SQ SCH ×4 (06:01→22:16)
[2018-10-29] MEDS: ALBUTEROL SO4 2.5/IPRATROPIUM 0.5 INH SOL 3 ML VIAL.NEB. NEB SCH ×3 (07:29→20:06)
[2018-10-29 07:43] LABS: HEMATOCRIT 29.8 % (32.4-45.2); HEMOGLOBIN 10.3 GM/dL (10.7-15.3); MCH 29.2 pg (25.7-33.7); MCHC 34.6 g/dl (32.0-36.0); MEAN CELL VOLUME 84.4 fl (80-96); MEAN PLT VOLUME 9.1 fl (7.5-11.1); PLATELET COUNT 249 K/MM3 (134-434); RBC 3.54 M/mm3 (3.60-5.2); RDW 14.4 % (11.6-15.6); WHITE BLOOD COUNT 16.9 K/mm3 (4.0-10.0)
[2018-10-29 07:54] LABS: ANION GAP 7 MMOL/L (8-16); BLOOD UREA NITROGEN 22 mg/dL (7-18); CALCIUM 8.6 mg/dL (8.5-10.1); CHLORIDE 102 mmol/L (98-107); CO2 25 mmol/L (21-32); CREATININE 0.9 mg/dL (0.55-1.3); GLUCOSE,RANDOM 193 mg/dL (74-106); POTASSIUM 4.5 mmol/L (3.5-5.1); SODIUM 134 mmol/L (136-145)
[2018-10-29] MEDS: AZITHROMYCIN 250 MG TABLET PO SCH (10:04)
[2018-10-29] MEDS: LISINOPRIL 5 MG TABLET (FP) PO SCH (10:04)
[2018-10-29] MEDS: guaiFENesin 200 MG/10 ML 10 ML UNIT-DOSE CUPS PO SCH ×2 (10:04→22:09)
[2018-10-29] MEDS: PANTOPRAZOLE 40 MG TABLET (FP) PO SCH (10:05)
[2018-10-29] MEDS: ENOXAPARIN NA (PORCINE) 30 MG/0.3 ML DISP.SYRIN SQ SCH (10:05)
--- NOTE | 2018-10-29 12:08 | PN ---
Progress Note (short form) - Note Progress Note: ############## medical ###############3 Current Medications Acetaminophen (Tylenol -) 500 mg PO Q6H PRN PRN Reason: FEVER Albuterol/Ipratropium (Duoneb -) 1 amp NEB RTID [facility] Last Admin: 10/29/18 07:29 Dose: 1 amp Enoxaparin Sodium (Lovenox -) 30 mg SQ DAILY [facility] Last Admin: 10/29/18 10:05 Dose: 30 mg Guaifenesin (Robitussin -) 10 ml PO BID [facility] Last Admin: 10/29/18 10:04 Dose: 10 ml Sodium Chloride (Normal Saline -) 1,000 mls @ 42 mls/hr IV ASDIR [facility] Last Admin: 10/29/18 05:45 Dose: 42 mls/hr Insulin Aspart (Novolog Vial Sliding Scale -) 1 vial SQ ACHS [facility]; Protocol Last Admin: 10/29/18 06:01 Dose: 2 units Lisinopril (Prinivil) 5 mg PO DAILY [facility] Last Admin: 10/29/18 10:04 Dose: 5 mg Magnesium Chloride (Slow-Mag -) 64 mg PO HS [facility] Last Admin: 10/28/18 22:12 Dose: 64 mg Melatonin (Melatonin) 10 mg PO [facility] Metformin HCl (Glucophage Xr -) 750 mg PO DAILY@0700 [facility] Last Admin: 10/29/18 06:02 Dose: 750 mg Methylprednisolone Sodium Succinate (Solu-Medrol -) 40 mg IVPB Q8H-IV [facility] Last Admin: 10/29/18 10:04 Dose: 40 mg Pantoprazole Sodium (Protonix -) 40 mg PO DAILY [facility] Last Admin: 10/29/18 10:05 Dose: 40 mg Ropinirole HCl (Requip -) 0.5 mg PO HS [facility] Last Admin: 10/28/18 22:13 Dose: 0.5 mg Laboratory Results - last 24 hr 10/28/18 10/28/18 10/28/18 12:00 17:08 22:16 WBC RBC Hgb Hct MCV MCH MCHC RDW Plt Count MPV Sodium Potassium Chloride Carbon Dioxide Anion Gap BUN Creatinine Creat Clearance w eGFR POC Glucometer 252 212 315 Random Glucose Calcium 10/29/18 10/29/18 10/29/18 05:39 06:45 06:45 WBC 16.9 H RBC 3.54 L Hgb 10.3 L Hct 29.8 L MCV 84.4 MCH 29.2 MCHC 34.6 RDW 14.4 Plt Count 249 MPV 9.1 Sodium 134 L Potassium 4.5 Chloride 102 Carbon Dioxide 25 Anion Gap 7 L BUN 22 H Creatinine 0.9 Creat Clearance w eGFR 59.80 POC Glucometer 201 Random Glucose 193 H Calcium 8.6 Vital Signs Period Temp Pulse Resp BP Sys/Bettencourt Pulse Ox Last 24 Hr 97.2 F-97.9 F 82-106 18-18 133-140/56-69 94-98 CC: feels better in general ```````````````````````````````````````````````` skin--good color; IV site good eyes--midline; EOMI lungs--distant BS; some voodoo sounds heard bilat; crackles on Lt base heart--RR back--some Lt CVAT ext--no edema neuro--alert; verbal in NAD; no focal deficits `````````````````````````````````````````` summ > PNA--Lt base infiltrate seen on CT scan; cont current Abs and Neb tx > COPD/asthma exacerb--feeling better breathing bullock. PLAN: cont currents meds. > HTN--BP in fair range; will not give Amlodpine in view of fast HR; may increase lisinopril if needed. > DM--BS over 200; likely 2nd steroid effect; cont coverage w/ insulin for now > RLS--not helped much with Ropinerole; will restart low dose magsulfate > Insomnia--multifactorial; had ill effect from Ambien; change to melatonin > UTI--multiple Gm (-) orgs; sensitive to Rocephiin; non ill or toxic > High WBC- was 17K on admission then came down; now stable at 16K; but this could be a steroid effect as well. No report of diarrhea, and has no fever. > anemia--slight drop in H/H; could be due to acute illness; will check daily counts. PLAN: cont PPi for now. ~~~~~~~~~~~~~~~~~ Dr Kc Problem List - Problems (1) Asthma Code(s): J45.909 - UNSPECIFIED ASTHMA, UNCOMPLICATED Qualifiers: Asthma severity: unspecified severity Asthma complication type: with acute exacerbation (2) Hypertensive heart disease Code(s): I11.9 - HYPERTENSIVE HEART DISEASE WITHOUT HEART FAILURE Qualifiers: Heart failure presence: without heart failure Qualified Code(s): I11.9 - Hypertensive heart disease without heart failure (3) Tachycardia with heart rate 100-120 beats per minute Code(s): R00.0 - TACHYCARDIA, UNSPECIFIED (4) T2DM (type 2 diabetes mellitus) Code(s): E11.9 - TYPE 2 DIABETES MELLITUS WITHOUT COMPLICATIONS Qualifiers: Diabetes mellitus complication status: with unspecified complications (5) Restless leg syndrome Code(s): G25.81 - RESTLESS LEGS SYNDROME (6) Hx of tuberculosis Code(s): Z86.11 - PERSONAL HISTORY OF TUBERCULOSIS (7) Multiple environmental allergies Code(s): Z91.09 - OTH ALLERGY STATUS, OTH THAN TO DRUGS AND BIOLG SUBSTANCES (8) Carotid artery stenosis Code(s): I65.29 - OCCLUSION AND STENOSIS OF UNSPECIFIED CAROTID ARTERY Qualifiers: Laterality: bilateral Qualified Code(s): I65.23 - Occlusion and stenosis of bilateral carotid arteries (9) Abnormal chest xray Code(s): R93.89 - ABNORMAL FINDINGS ON DX IMAGING OF OTH BODY STRUCTURES (10) Lives alone without help available Code(s): Z60.2 - PROBLEMS RELATED TO LIVING ALONE (11) History of URI (upper respiratory infection) Code(s): Z87.09 - PERSONAL HISTORY OF OTHER DISEASES OF THE RESPIRATORY SYSTEM
[2018-10-29] MEDS ORDERED: dilTIAZem HCL 30 MG TABLET (FP) PO ONE (16:45)
[2018-10-29] MEDS ORDERED: PT OWN MED DRAWER 7, Y5N ONE ×2 (17:24→21:17)
[2018-10-29] MEDS: MELATONIN 5 MG TABLETS PO SCH (22:07)
[2018-10-29] MEDS: rOPINIRole HCL 0.5 MG TABLET PO SCH (22:09)
[2018-10-29] MEDS: MAGNESIUM CL 64 MG TABLET.SA PO SCH (22:09)
[2018-10-29] MEDS: dilTIAZem HCL 30 MG TABLET (FP) PO SCH (22:35)
[2018-10-30] MEDS: methylPREDNISolone NA SUCC 40 MG/1 ML VIAL IVPB SCH ×3 (01:10→17:26)
[2018-10-30] MEDS: INSULIN SLIDING SCALE (NOVOLOG) 1 VIAL SQ SCH ×4 (06:29→23:00)
[2018-10-30] MEDS: dilTIAZem HCL 30 MG TABLET (FP) PO SCH ×4 (06:31→23:03)
[2018-10-30] MEDS ORDERED: ALBUTEROL SO4 2.5/IPRATROPIUM 0.5 INH SOL 3 ML VIAL.NEB. NEB ONE (07:34)
[2018-10-30] MEDS: ALBUTEROL SO4 2.5/IPRATROPIUM 0.5 INH SOL 3 ML VIAL.NEB. NEB SCH ×3 (07:40→19:55)
[2018-10-30 08:18] LABS: HEMATOCRIT 31.2 % (32.4-45.2); HEMOGLOBIN 10.3 GM/dL (10.7-15.3); MCH 27.7 pg (25.7-33.7); MCHC 32.9 g/dl (32.0-36.0); MEAN CELL VOLUME 84.1 fl (80-96); MEAN PLT VOLUME 8.3 fl (7.5-11.1); PLATELET COUNT 258 K/MM3 (134-434); RBC 3.71 M/mm3 (3.60-5.2); RDW 14.7 % (11.6-15.6); WHITE BLOOD COUNT 11.8 K/mm3 (4.0-10.0)
--- NOTE | 2018-10-30 09:24 | EKG ---
Test Reason : Blood Pressure : / mmHG Vent. Rate : 111 BPM Atrial Rate : 111 BPM P-R Int : 138 ms QRS Dur : 092 ms QT Int : 336 ms P-R-T Axes : 081 081 -30 degrees QTc Int : 456 ms SINUS TACHYCARDIA NONSPECIFIC ST ABNORMALITY NONSPECIFIC T WAVE ABNORMALITY ABNORMAL ECG WHEN COMPARED WITH ECG OF 26-OCT-2018 15:13, PREMATURE ATRIAL COMPLEXES ARE NO LONGER PRESENT Confirmed by FAIZA MENON, BLAKE ([id number]) on 10/30/2018 9:23:33 AM Referred By: Confirmed By:BLAKE KENDALL MD
[2018-10-30] MEDS: ENOXAPARIN NA (PORCINE) 30 MG/0.3 ML DISP.SYRIN SQ SCH (09:52)
[2018-10-30] MEDS: guaiFENesin 200 MG/10 ML 10 ML UNIT-DOSE CUPS PO SCH ×2 (09:52→23:02)
[2018-10-30] MEDS: PANTOPRAZOLE 40 MG TABLET (FP) PO SCH (09:52)
[2018-10-30] MEDS: LISINOPRIL 5 MG TABLET (FP) PO SCH ×2 (09:53→23:02)
[2018-10-30] MEDS ORDERED: PT OWN MED DRAWER 7, Y5N ONE ×3 (13:53→21:24)
--- NOTE | 2018-10-30 14:42 | ECHO ---
Version: 1 Name: JELANI HOLLIDAY Exam: Adult Echocardiogram Study Date: 10/30/2018, 8:31 AM Age: 83 Years MMode/2D Measurements & Calculations IVSd: 0.97 cm LVIDs: 3.0 cm LVIDd: 4.1 cm LVPWd: 1.00 cm LAV (MOD-bp): 36.3 ml LVOT diam: 1.97 cm Ao root diam: 2.37 cm LA dimension: 2.6 cm Doppler Measurements & Calculations MV E max ruslan: 118.0 cm/sec Med E/e': 15.7 MV A max ruslan: 100.6 cm/sec Med Peak E' Ruslan: 7.5 cm/sec MV E/A: 1.17 Lat E/e': 12.1 Lat Peak E' Ruslan: 9.8 cm/sec MR max P.7 mmHg Ao max P.1 mmHg Ao V2 max: 158.7 cm/sec TR max ruslan: 289.6 cm/sec TR max P.4 mmHg Procedure A complete two-dimensional transthoracic echocardiogram was performed (2D, M-mode, Doppler and color flow Doppler). Left Ventricle The left ventricular size, thickness and function are normal. Ejection Fraction = 55%. E/A reversal consistent with but not diagnostic of poor LV compliance. The left ventricular wall motion is normal . Right Ventricle The right ventricle is normal in size and function. Atria Normal left and right atrial size and function. Mitral Valve There is mild to moderate mitral valve thickening. There is mild to moderate mitral regurgitation. Tricuspid Valve The tricuspid valve is not well visualized, but is grossly normal. There is mild to moderate tricusp id regurgitation. Right ventricular systolic pressure is elevated at 40 mmhg. There is mild pulmonary hypertension. Aortic Valve There is mild to moderate aortic sclerosis.;. Trace aortic regurgitation. Pulmonic Valve The pulmonic valve leaflets are thin and pliable; valve motion is normal. Trace pulmonic valvular regurgitation. Great Vessels The aortic root is normal size. Pericardium/Pleura There is no pericardial effusion. There is no pleural effusion. Summary Statements The left ventricular size, thickness and function are normal Ejection Fraction = 55%. There is mild to moderate mitral valve thickening. There is mild to moderate mitral regurgitation. There is mild to moderate tricuspid regurgitation. Right ventricular systolic pressure is elevated at 40 mmhg. There is mild pulmonary hypertension. There is mild to moderate aortic sclerosis.; Trace aortic regurgitation. Trace pulmonic valvular regurgitation. MD Toby Benson 10/30/2018, 1:42 PM Ordering Physician: Chris Kc Performed By: Shelley Yen
--- NOTE | 2018-10-30 15:35 | PN ---
Progress Note (short form) - Note Progress Note: Medical Current Medications Acetaminophen (Tylenol -) 500 mg PO Q6H PRN PRN Reason: FEVER Albuterol/Ipratropium (Duoneb -) 1 amp NEB RTID [facility] Last Admin: 10/30/18 07:40 Dose: 1 amp Diltiazem HCl (Cardizem -) 30 mg PO TID [facility] Last Admin: 10/30/18 13:55 Dose: 30 mg Enoxaparin Sodium (Lovenox -) 30 mg SQ DAILY [facility] Last Admin: 10/30/18 09:52 Dose: 30 mg Guaifenesin (Robitussin -) 10 ml PO BID [facility] Last Admin: 10/30/18 09:52 Dose: 10 ml Insulin Aspart (Novolog Vial Sliding Scale -) 1 vial SQ ACHS [facility]; Protocol Last Admin: 10/30/18 12:19 Dose: 3 units Lisinopril (Prinivil) 5 mg PO DAILY [facility] Last Admin: 10/30/18 09:53 Dose: 5 mg Magnesium Chloride (Slow-Mag -) 64 mg PO HS [facility] Last Admin: 10/29/18 22:09 Dose: 64 mg Melatonin (Melatonin) 10 mg PO HS [facility] Last Admin: 10/29/18 22:07 Dose: 10 mg Metformin HCl (Glucophage Xr -) 750 mg PO DAILY@0700 [facility] Last Admin: 10/30/18 06:31 Dose: 750 mg Methylprednisolone Sodium Succinate (Solu-Medrol -) 40 mg IVPB Q8H-IV [facility] Last Admin: 10/30/18 09:52 Dose: 40 mg Pantoprazole Sodium (Protonix -) 40 mg PO DAILY [facility] Last Admin: 10/30/18 09:52 Dose: 40 mg Ropinirole HCl (Requip -) 0.5 mg PO HS [facility] Last Admin: 10/29/18 22:09 Dose: 0.5 mg Laboratory Results - last 24 hr 10/28/18 10/29/18 10/29/18 06:00 17:17 22:15 WBC RBC Hgb Hct MCV MCH MCHC RDW Plt Count MPV POC Glucometer 189 247 Creatine Kinase Troponin I Free T3 1.3 L 10/30/18 10/30/18 10/30/18 06:28 07:35 07:35 WBC 11.8 H RBC 3.71 Hgb 10.3 L Hct 31.2 L MCV 84.1 MCH 27.7 MCHC 32.9 RDW 14.7 Plt Count 258 MPV 8.3 POC Glucometer 215 Creatine Kinase 66 Troponin I 0.02 Free T3 10/30/18 12:17 WBC RBC Hgb Hct MCV MCH MCHC RDW Plt Count MPV POC Glucometer 269 Creatine Kinase Troponin I Free T3 Vital Signs Temperature 98.7 F 10/30/18 14:15 Pulse Rate 114 H 10/30/18 14:15 Respiratory Rate 20 10/30/18 14:15 Blood Pressure 152/68 10/30/18 14:15 O2 Sat by Pulse Oximetry (%) 96 10/29/18 20:30 CC: feels better in general; less lt flank pain ```````````````````````````````````````````````` skin--good color; IV site good eyes--midline; EOMI lungs--distant BS; less crackles on Lt base heart--RR back--some Lt CVAT ext--no edema neuro--alert; verbal in NAD; no focal deficits `````````````````````````````````````````` summ > tachycardia--mild; sinus; no gross EKG changes; she described a sense of anxiety much of yesterday PLAN: Await ECHO; started cardizem > PNA--Lt base infiltrate seen on CT scan; cont current Abs and Neb tx > COPD/asthma exacerb--feeling better breathing bullock. PLAN: cont currents meds; will lower steroids. > HTN--BP now higher than on admission; NS stopped; PLAN: CCB added, will increase lisinopril to BID > DM--BS over 200; likely 2nd steroid effect; cont coverage w/ insulin for now > RLS--not helped much with Ropinerole; on low dose magsulfate > Insomnia--multifactorial; had ill effect from Ambien; changed to melatonin > UTI--multiple Gm (-) orgs; sensitive to Rocephiin; non ill or toxic > High WBC- was 17K on admission then came down; now stable at 11K; but this could be a steroid effect as well. No report of diarrhea, and has no fever. > anemia--slight drop in H/H; could be due to acute illness; will check daily counts. PLAN: cont PPi for now. ~~~~~~~~~~~~~~~~~ Dr Kc Problem List - Problems (1) Asthma Code(s): J45.909 - UNSPECIFIED ASTHMA, UNCOMPLICATED Qualifiers: Asthma severity: unspecified severity Asthma complication type: with acute exacerbation (2) Hypertensive heart disease Code(s): I11.9 - HYPERTENSIVE HEART DISEASE WITHOUT HEART FAILURE Qualifiers: Heart failure presence: without heart failure Qualified Code(s): I11.9 - Hypertensive heart disease without heart failure (3) Tachycardia with heart rate 100-120 beats per minute Code(s): R00.0 - TACHYCARDIA, UNSPECIFIED (4) T2DM (type 2 diabetes mellitus) Code(s): E11.9 - TYPE 2 DIABETES MELLITUS WITHOUT COMPLICATIONS Qualifiers: Diabetes mellitus complication status: with unspecified complications (5) Restless leg syndrome Code(s): G25.81 - RESTLESS LEGS SYNDROME (6) Hx of tuberculosis Code(s): Z86.11 - PERSONAL HISTORY OF TUBERCULOSIS (7) Multiple environmental allergies Code(s): Z91.09 - OTH ALLERGY STATUS, OTH THAN TO DRUGS AND BIOLG SUBSTANCES (8) Carotid artery stenosis Code(s): I65.29 - OCCLUSION AND STENOSIS OF UNSPECIFIED CAROTID ARTERY Qualifiers: Laterality: bilateral Qualified Code(s): I65.23 - Occlusion and stenosis of bilateral carotid arteries (9) Abnormal chest xray Code(s): R93.89 - ABNORMAL FINDINGS ON DX IMAGING OF OTH BODY STRUCTURES (10) Lives alone without help available Code(s): Z60.2 - PROBLEMS RELATED TO LIVING ALONE (11) History of URI (upper respiratory infection) Code(s): Z87.09 - PERSONAL HISTORY OF OTHER DISEASES OF THE RESPIRATORY SYSTEM
[2018-10-30] MEDS: MELATONIN 5 MG TABLETS PO SCH (22:01)
[2018-10-30] MEDS: MAGNESIUM CL 64 MG TABLET.SA PO SCH (22:47)
[2018-10-30] MEDS: rOPINIRole HCL 0.5 MG TABLET PO SCH (22:48)
[2018-10-31] MEDS: methylPREDNISolone NA SUCC 40 MG/1 ML VIAL IVPB SCH (02:22)
[2018-10-31] MEDS: INSULIN SLIDING SCALE (NOVOLOG) 1 VIAL SQ SCH ×4 (06:21→21:06)
[2018-10-31] MEDS: dilTIAZem HCL 30 MG TABLET (FP) PO SCH ×3 (06:22→17:36)
[2018-10-31 07:55] LABS: HEMOGLOBIN 10.6 GM/dL (10.7-15.3); MCH 28.9 pg (25.7-33.7); MCHC 34.2 g/dl (32.0-36.0); MEAN CELL VOLUME 84.5 fl (80-96); MEAN PLT VOLUME 8.4 fl (7.5-11.1); PLATELET COUNT 277 K/MM3 (134-434); RBC 3.67 M/mm3 (3.60-5.2); RDW 14.7 % (11.6-15.6); WHITE BLOOD COUNT 10.6 K/mm3 (4.0-10.0)
[2018-10-31 08:19] LABS: ANION GAP 7 MMOL/L (8-16); BLOOD UREA NITROGEN 20 mg/dL (7-18); CALCIUM 8.8 mg/dL (8.5-10.1); CHLORIDE 98 mmol/L (98-107); CO2 30 mmol/L (21-32); CREATININE 0.8 mg/dL (0.55-1.3); GLUCOSE,RANDOM 210 mg/dL (74-106); POTASSIUM 3.9 mmol/L (3.5-5.1); SODIUM 135 mmol/L (136-145)
[2018-10-31] MEDS: ALBUTEROL SO4 2.5/IPRATROPIUM 0.5 INH SOL 3 ML VIAL.NEB. NEB SCH ×3 (08:29→20:44)
[2018-10-31] MEDS: LISINOPRIL 5 MG TABLET (FP) PO SCH ×2 (09:58→21:07)
[2018-10-31] MEDS: PANTOPRAZOLE 40 MG TABLET (FP) PO SCH (09:58)
[2018-10-31] MEDS: ENOXAPARIN NA (PORCINE) 30 MG/0.3 ML DISP.SYRIN SQ SCH (09:58)
[2018-10-31] MEDS: guaiFENesin 200 MG/10 ML 10 ML UNIT-DOSE CUPS PO SCH ×2 (09:58→21:10)
[2018-10-31] MEDS ORDERED: methylPREDNISolone NA SUCC 40 MG/1 ML VIAL IVPB SCH (10:00)
[2018-10-31] MEDS: methylPREDNISolone NA SUCC 40 MG/1 ML VIAL IVPUSH SCH ×2 (10:07→21:13)
--- NOTE | 2018-10-31 11:55 | PN ---
Progress Note (short form) - Note Progress Note: medical Current Medications Acetaminophen (Tylenol -) 500 mg PO Q6H PRN PRN Reason: FEVER Albuterol/Ipratropium (Duoneb -) 1 amp NEB RTID [facility] Last Admin: 10/30/18 19:55 Dose: 1 amp Diltiazem HCl (Cardizem -) 30 mg PO Q6HPO [facility] Last Admin: 10/31/18 06:22 Dose: 30 mg Enoxaparin Sodium (Lovenox -) 30 mg SQ DAILY [facility] Last Admin: 10/31/18 09:58 Dose: 30 mg Guaifenesin (Robitussin -) 10 ml PO BID [facility] Last Admin: 10/31/18 09:58 Dose: 10 ml Insulin Aspart (Novolog Vial Sliding Scale -) 1 vial SQ [facility]; Protocol Last Admin: 10/31/18 11:28 Dose: Not Given Lisinopril (Prinivil) 5 mg PO BID [facility] Last Admin: 10/31/18 09:58 Dose: 5 mg Magnesium Chloride (Slow-Mag -) 64 mg PO [facility] Last Admin: 10/30/18 22:47 Dose: 64 mg Melatonin (Melatonin) 10 mg PO [facility] Last Admin: 10/30/18 22:01 Dose: 10 mg Metformin HCl (Glucophage Xr -) 750 mg PO DAILY@0700 [facility] Last Admin: 10/31/18 06:22 Dose: 750 mg Methylprednisolone Sodium Succinate (Solu-Medrol -) 40 mg IVPUSH BID [facility] Last Admin: 10/31/18 10:07 Dose: Not Given Pantoprazole Sodium (Protonix -) 40 mg PO DAILY [facility] Last Admin: 10/31/18 09:58 Dose: 40 mg Ropinirole HCl (Requip -) 0.5 mg PO [facility] Last Admin: 10/30/18 22:48 Dose: 0.5 mg Laboratory Results - last 24 hr 10/30/18 10/30/18 10/30/18 12:17 17:35 22:58 WBC RBC Hgb Hct MCV MCH MCHC RDW Plt Count MPV Sodium Potassium Chloride Carbon Dioxide Anion Gap BUN Creatinine Creat Clearance w eGFR POC Glucometer 269 327 284 Random Glucose Calcium 10/31/18 10/31/18 10/31/18 06:20 06:40 06:40 WBC 10.6 H RBC 3.67 Hgb 10.6 L Hct 31.0 L MCV 84.5 MCH 28.9 MCHC 34.2 RDW 14.7 Plt Count 277 MPV 8.4 Sodium 135 L Potassium 3.9 Chloride 98 Carbon Dioxide 30 Anion Gap 7 L BUN 20 H Creatinine 0.8 Creat Clearance w eGFR 68.50 POC Glucometer 228 Random Glucose 210 H Calcium 8.8 10/31/18 11:19 WBC RBC Hgb Hct MCV MCH MCHC RDW Plt Count MPV Sodium Potassium Chloride Carbon Dioxide Anion Gap BUN Creatinine Creat Clearance w eGFR POC Glucometer 189 Random Glucose Calcium Vital Signs Temperature 97.8 F 10/31/18 10:00 Pulse Rate 97 H 10/31/18 10:00 Respiratory Rate 20 10/31/18 10:00 Blood Pressure 133/60 10/31/18 10:00 O2 Sat by Pulse Oximetry (%) 96 10/31/18 09:00 CC: felt groggy this Am (got melatonin late); has some Lt inner breast soreness ```````````````````````````````````````````````` skin--good color; IV site good eyes--midline; EOMI lungs--distant BS; less crackles on Lt base heart--RR Lt breast--no masses, rashes, discharge back--some Lt CVAT ext--trace edema neuro--alert; verbal in NAD; no focal deficits `````````````````````````````````````````` summ > tachycardia--mild; sinus; no gross EKG changes; rate less since on the CCB; echo shows Ej Fx of 55%, but some Lv non compliance.PLAN: cont cardizem > PNA--Lt base infiltrate seen on CT scan (not on official report) but clinically has less adventitious sounds; cont current Abs and Neb tx > COPD/asthma exacerb--feeling better breathing bullock. PLAN: cont currents meds; will lower steroids. > HTN--BP a bit lower.PLAN: cont TIANNA BID and CCB > pedal edema--no SOB; likely 2nd the CCB and steroids; Give 1 dose of lasix > DM--BS lower due to lower steroid dosing > RLS--not helped much with Ropinerole; on low dose magsulfate > Insomnia--multifactorial; changed to melatonin > UTI--multiple Gm (-) orgs; sensitive to Rocephiin; non ill or toxic > High WBC- was 17K on admission then came down; now stable at 11K; but this could be a steroid effect as well. No report of diarrhea, and has no fever. > anemia--slight drop in H/H; could be due to acute illness; will check daily counts. PLAN: cont PPi for now. > AbnL TFT--had low TSH but free T4 was NL; and free T3 was low; possibly euthyroid sick syndrome as she is clinically euthyroid but will repeat as OP ~~~~~~~~~~~~~~~~~ Dr Kc Problem List - Problems (1) Asthma Code(s): J45.909 - UNSPECIFIED ASTHMA, UNCOMPLICATED Qualifiers: Asthma severity: unspecified severity Asthma complication type: with acute exacerbation (2) Hypertensive heart disease Code(s): I11.9 - HYPERTENSIVE HEART DISEASE WITHOUT HEART FAILURE Qualifiers: Heart failure presence: without heart failure Qualified Code(s): I11.9 - Hypertensive heart disease without heart failure (3) Tachycardia with heart rate 100-120 beats per minute Code(s): R00.0 - TACHYCARDIA, UNSPECIFIED (4) T2DM (type 2 diabetes mellitus) Code(s): E11.9 - TYPE 2 DIABETES MELLITUS WITHOUT COMPLICATIONS Qualifiers: Diabetes mellitus complication status: with unspecified complications (5) Restless leg syndrome Code(s): G25.81 - RESTLESS LEGS SYNDROME (6) Hx of tuberculosis Code(s): Z86.11 - PERSONAL HISTORY OF TUBERCULOSIS (7) Multiple environmental allergies Code(s): Z91.09 - OTH ALLERGY STATUS, OTH THAN TO DRUGS AND BIOLG SUBSTANCES (8) Carotid artery stenosis Code(s): I65.29 - OCCLUSION AND STENOSIS OF UNSPECIFIED CAROTID ARTERY Qualifiers: Laterality: bilateral Qualified Code(s): I65.23 - Occlusion and stenosis of bilateral carotid arteries (9) Abnormal chest xray Code(s): R93.89 - ABNORMAL FINDINGS ON DX IMAGING OF OTH BODY STRUCTURES (10) Lives alone without help available Code(s): Z60.2 - PROBLEMS RELATED TO LIVING ALONE (11) History of URI (upper respiratory infection) Code(s): Z87.09 - PERSONAL HISTORY OF OTHER DISEASES OF THE RESPIRATORY SYSTEM
[2018-10-31] MEDS ORDERED: FUROSEMIDE 40 MG TABLET (FP) PO ONE (11:57)
[2018-10-31] MEDS ORDERED: INSULIN (NOVOLOG) ASPART 100 UNITS/ML 10ML VIAL SQ ONE (17:45)
[2018-10-31] MEDS ORDERED: PT OWN MED DRAWER 7, Y5N ONE (21:00)
[2018-10-31] MEDS: rOPINIRole HCL 0.5 MG TABLET PO SCH (21:09)
[2018-10-31] MEDS: MAGNESIUM CL 64 MG TABLET.SA PO SCH (21:12)
[2018-10-31] MEDS ORDERED: MELATONIN 5 MG TABLETS PO SCH (22:00)
[2018-11-01] MEDS: dilTIAZem HCL 30 MG TABLET (FP) PO SCH (00:51)
[2018-11-01] MEDS ORDERED: PT OWN MED DRAWER 7, Y5N ONE (05:05)
[2018-11-01] MEDS: INSULIN SLIDING SCALE (NOVOLOG) 1 VIAL SQ SCH ×2 (06:14→11:40)
[2018-11-01] MEDS: ALBUTEROL SO4 2.5/IPRATROPIUM 0.5 INH SOL 3 ML VIAL.NEB. NEB SCH ×2 (07:31→15:05)
[2018-11-01 07:32] LABS: HEMATOCRIT 32.2 % (32.4-45.2); HEMOGLOBIN 10.4 GM/dL (10.7-15.3); MCH 27.1 pg (25.7-33.7); MCHC 32.4 g/dl (32.0-36.0); MEAN CELL VOLUME 83.8 fl (80-96); MEAN PLT VOLUME 8.3 fl (7.5-11.1); PLATELET COUNT 301 K/MM3 (134-434); RBC 3.84 M/mm3 (3.60-5.2); WHITE BLOOD COUNT 10.6 K/mm3 (4.0-10.0)
[2018-11-01 07:54] LABS: ANION GAP 7 MMOL/L (8-16); BLOOD UREA NITROGEN 27 mg/dL (7-18); CALCIUM 8.6 mg/dL (8.5-10.1); CHLORIDE 94 mmol/L (98-107); CO2 33 mmol/L (21-32); GLUCOSE,RANDOM 233 mg/dL (74-106); POTASSIUM 4.1 mmol/L (3.5-5.1); SODIUM 135 mmol/L (136-145)
[2018-11-01] MEDS: ENOXAPARIN NA (PORCINE) 30 MG/0.3 ML DISP.SYRIN SQ SCH (09:43)
[2018-11-01] MEDS: LISINOPRIL 5 MG TABLET (FP) PO SCH (09:43)
[2018-11-01] MEDS: PANTOPRAZOLE 40 MG TABLET (FP) PO SCH (09:43)
[2018-11-01] MEDS: guaiFENesin 200 MG/10 ML 10 ML UNIT-DOSE CUPS PO SCH (09:43)
[2018-11-01] MEDS: methylPREDNISolone NA SUCC 40 MG/1 ML VIAL IVPUSH SCH (09:43)
[2018-11-01 13:03] VITALS: BP 146/66; PULSE 100; TEMP 97.6
[2018-11-01] MEDS ORDERED: predniSONE 20 MG TABLET (UD) PO ONE (15:04)
--- NOTE | 2018-11-01 15:42 | DS ---
Physical Examination Vital Signs: Vital Signs Temperature 97.6 F 11/01/18 13:02 Pulse Rate 100 H 11/01/18 13:02 Respiratory Rate 18 11/01/18 10:00 Blood Pressure 146/66 11/01/18 13:02 O2 Sat by Pulse Oximetry (%) 97 11/01/18 09:00 Constitutional: Yes: No Distress, Calm Eyes: Yes: WNL, Conjunctiva Clear, EOM Intact HENT: Yes: WNL Neck: Yes: Supple, Trachea Midline Cardiovascular: Yes: Tachycardia (approx 100BPM) Respiratory: Yes: Regular Gastrointestinal: Yes: Normal Bowel Sounds, Soft ...Rectal Exam: Yes: Deferred Breast(s): Yes: WNL Musculoskeletal: Yes: WNL Extremities: Yes: WNL Edema: No Integumentary: Yes: WNL Neurological: Yes: WNL ...Motor Strength: WNL Psychiatric: Yes: WNL Labs: CBC, BMP 11/01/18 06:30 11/01/18 06:30 Discharge Summary Reason For Visit: SOB,COPD Current Active Problems Abnormal chest xray (Acute) Asthma (Acute) COPD (chronic obstructive pulmonary disease) (Acute) Carotid artery stenosis (Acute) Febrile illness (Acute) History of URI (upper respiratory infection) (Acute) Hx of tuberculosis Hypertensive heart disease (Acute) Lives alone without help available (Acute) Multiple environmental allergies (Acute) Pneumonia (Acute) Restless leg syndrome (Acute) SOB (shortness of breath) (Acute) T2DM (type 2 diabetes mellitus) (Acute) Tachycardia with heart rate 100-120 beats per minute (Acute) UTI anemia Other Procedures: echocardiogram Hospital Course: The patient is 82 year old female with a significant past medical history of chronic asthma/bronchitis, COPD not on O2, DM type 2, HTN, Arthritis, old TB (s/ p lobectomy in 1950s) and CAD (s/p CABG) who was admitted for weakness, dyspnea ; Lt flank pain for nearly 1 month. she was found to have a fever with high WBC and extensive lung adventitious sounds. She was started on IV Steroids; IV Abs; Neb Treatments, and improved gradually. Her fever subsided; her WBC dimnished. The BC was negative but urine culture showed several GM neg baccilli that were sensitive to Rocephin. Her glucose nestor considerably but 2nd to high dose steroids. Her baseline HR was about 90's and nestor as high as 115-120. the EKG just showed sinus tach; and her oxygenation was NL on RA. She never c/o anterior CP or resting SOB. She was placed on PO Cardizem which helped slow the HR a bit and better controlled the BP. Echo was grossly unremarkable with EJ Fx of 55%The Lt flank pains subsided. She remained well as she was being weaned off steroids. Her H/h had dropped a bit but remained stable. She was d/c'd on PO Abs, Medrol dose santy, and she is to continue her usual inhalers & remaining meds at home. She voiced no complaints near the time of D/c Condition: Guarded - Instructions Diet, Activity, Other Instructions: Low salt diet avoid foods containing diary products avoid any strenuous activity no alcohol containing drinks or foods while on Medrol Disposition: VNS/HOME HEALTH CARE - Home Medications Comprehensive Discharge Medication List: Ambulatory Orders Albuterol 2.5/Ipratropium 0.5 [Duoneb -] 1 amp NEB RTID amp 11/01/18 Aspirin [ASA -] 81 mg PO DAILY #30 tab.chew 11/01/18 Budesonide/Formeterol Fumarate [SYMBICORT 160/4.5mcg -] 1 inh IH DAILY #1 inhaler 11/01/18 Calcitonin-[place] [Miacalcin [place] -] 3.7 ml NS DAILY #1 spray.pump 11/01/18 Cefuroxime Axetil [Ceftin -] 500 mg PO Q12H 5 Days #10 tablet 11/01/18 Diltiazem Cd [Cardizem Cd -] 180 mg PO DAILY 90 Days #90 cap.cd.24h 11/01/18 Ipratropium Jeffrey 30 ml NS DAILY #1 spray 11/01/18 Magnesium Chloride [Slow-Mag -] 64 mg PO HS tablet.sa 11/01/18 Melatonin 5 mg PO HS tab 11/01/18 Metformin HCl 500 gm MC TID #90 powder 11/01/18 Methylprednisolone [Medrol Dose Santy] 4 mg PO ASDIR #21 tablet 11/01/18 Nateglinide [Starlix (Nf) -] 60 mg PO DAILY #21 tablet 11/01/18 Pravastatin Sodium [Pravachol -] 40 mg PO HS 90 Days #30 tablet 11/01/18 Ropinirole HCl [Requip -] 0.5 mg PO HS tablet 11/01/18 Tiotropium Jeffrey [Spiriva Respimat] 4 gm IH DAILY #1 mist.inhal 11/01/18
[2018-11-01] MEDS ORDERED: INSULIN (NOVOLOG) ASPART 100 UNITS/ML 10ML VIAL SQ ONE (17:15)
== END 2018-11-01 18:24 | disposition home health service (06) | DRG 190 ==
LOC: JER 15:11 → JERBED 17:31 → J7W 20:19 → OBSVTOIN 10-29 10:24
PROVIDERS: ADMIT Internal Medicine; ATTEND Internal Medicine
DX: J44.1 Chronic obstructive pulmonary disease with (acute) exacerbation (principal); J18.9 Pneumonia, unspecified organism; N39.0 Urinary tract infection, site not specified; E11.9 Type 2 diabetes mellitus without complications; I25.10 Atherosclerotic heart disease of native coronary artery without angina pectoris; J45.909 Unspecified asthma, uncomplicated; G25.81 Restless legs syndrome; F41.9 Anxiety disorder, unspecified; I11.9 Hypertensive heart disease without heart failure; B96.20 Unspecified Escherichia coli [E. coli] as the cause of diseases classified elsewhere; R00.0 Tachycardia, unspecified; D64.9 Anemia, unspecified; R93.89 Abnormal findings on diagnostic imaging of other specified body structures; Z60.2 Problems related to living alone; G47.00 Insomnia, unspecified; Z91.09 Other allergy status, other than to drugs and biological substances; Z87.09 Personal history of other diseases of the respiratory system; Z86.11 Personal history of tuberculosis; Z87.891 Personal history of nicotine dependence; Z95.1 Presence of aortocoronary bypass graft
CPT/HCPCS: 36415; 71045-TC-FY; 71250-TC; 80048; 80053; 81003; 82550; 82803; 82947; 82962; 83036; 83605; 83735; 84439; 84443; 84481; 84484; 85025; 85027; 85610; 85730; 87040; 87086; 87186; 87804; 87899; 93005; 93010; 93306-TC; 94640; 99283-25; G0378; J7030

== ENCOUNTER 2018-12-28 13:16 | Inpatient (IN) | payer OTHER, MEDICARE | END 2019-01-04 17:15 | disposition home or self-care (01) | LOC: JER 13:16 → JERBED 14:55 → J6S 20:36 ==

== ENCOUNTER 2019-01-09 13:27 | Inpatient (IN) | payer OTHER, MEDICARE | END 2019-01-19 16:40 | disposition home health service (06) | LOC: JER 13:27 → JERBED 16:47 → J4S 21:15 ==

== ENCOUNTER 2019-07-29 08:38 | Inpatient (IN) | payer OTHER, MEDICARE ==
--- NOTE | 2019-07-29 09:07 | PDOC ---
History of Present Illness - General Chief Complaint: Chest Pain Stated Complaint: SENT BY DOCTOR Time Seen by Provider: 07/29/19 09:07 History Source: Patient Exam Limitations: No Limitations - History of Present Illness Initial Comments: 07/29/19 09:16 83yF w PMHx chronic asthma, COPD not O2 dep, T2DM, HTN, Arthritis, s/pTB s/p rt upper lobectomy in s, CAD s/p CABG presenting w exertional chest pain and and SOB. Ongoing midsternal exertional chest pain and SOB for past 7d, associated reduced exercise tolerance. Did not take meds today. Denies fever, cough, nausea/vomiting, AB pain, extremity swelling. Last admitted in January 2019 for altered mental status and EKG changes/TWI V2-5, stress test showed normal perfusion. Last echo January showed normal LVEF. 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 Past History - Past Medical History Allergies/Adverse Reactions: Allergies Allergy/AdvReac Type Severity Reaction Status Date / Time No Known Drug Allergies Allergy Unknown Verified 07/29/19 08:49 MOLD Allergy RESP Uncoded 07/29/19 08:49 SYMPTOMS lactose intolerance AdvReac Unknown Difficulty Uncoded 07/29/19 08:49 Breathing Home Medications: Ambulatory Orders Albuterol 2.5/Ipratropium 0.5 [Duoneb -] 1 amp NEB RTID amp 11/01/18 Aspirin [ASA -] 81 mg PO DAILY #30 tab.chew 11/01/18 Nateglinide [Starlix (Nf) -] 60 mg PO TID 12/28/18 Pravastatin Sodium [Pravachol -] 40 mg PO HS 12/28/18 Amlodipine Besylate [Norvasc -] 5 mg PO DAILY tablet 01/19/19 Nebivolol [Bystolic -] 10 mg PO DAILY tab 01/19/19 Azithromycin 750 mg PO WEEKLY 07/29/19 Budesonide/Formeterol Fumarate [SYMBICORT 160/4.5mcg -] 1 inh IH BID 07/29/19 Metformin HCl [Glucophage] 500 mg PO TID 07/29/19 Nebivolol HCl [Bystolic] 10 mg PO DAILY 07/29/19 predniSONE [Deltasone -] 20 mg PO DAILY 07/29/19 Anemia: No Asthma: Yes Cancer: No Cardiac Disorders: Yes COPD: Yes Diabetes: Yes HTN: Yes Hypercholesterolemia: Yes Kidney Stones: Yes - Surgical History Cardiac Surgery: Yes (CABG) Cholecystectomy: Yes Lung Surgery: Yes (R. Lobectomy) - Psycho Social/Smoking Cessation Hx Smoking Status: Yes Smoking History: Former smoker Have you smoked in the past 12 months: No Number of Cigarettes Smoked Daily: 0 If you are a former smoker, when did you quit?: 40yrs Cigars Per Day: 0 Information on smoking cessation initiated: No Hx Alcohol Use: No Drug/Substance Use Hx: No Substance Use Type: Alcohol Hx Substance Use Treatment: No Review of Systems - Review of Systems Constitutional: No: Chills, Fever HEENTM: No: Eye Pain, Nose Pain, Throat Pain, Mouth Pain Respiratory: Yes: Shortness of Breath. No: Cough Cardiac (ROS): Yes: Chest Pain. No: Palpitations, Syncope ABD/GI: No: Abdominal Distended, Constipated, Diarrhea, Nausea, Vomiting : No: Burning, Dysuria, Hematuria Musculoskeletal: No: Back Pain, Neck Pain Integumentary: No: Bruising, Flushing, Lesions Neurological: No: Headache, Seizure, Tingling Psychiatric: No: Anxiety, Depression, Stressors Endocrine: No: Excessive Sweating, Flushing, Intolerance to Cold, Intolerance to Heat Hematologic/Lymphatic: No: Anemia, Blood Clots *Physical Exam - Vital Signs Last Vital Signs Temp Pulse Resp BP Pulse Ox 97.7 F 72 22 H 160/57 L 100 07/29/19 08:50 07/29/19 10:21 07/29/19 10:21 07/29/19 10:21 07/29/19 10:21 - Physical Exam General Appearance: Yes: Nourished, Appropriately Dressed. No: Apparent Distress HEENT: positive: EOMI, DORETHA, Normal Voice, Hearing Grossly Normal. negative: Scleral Icterus (R), Scleral Icterus (L), Nasal Congestion, Rhinorrhea Respiratory/Chest: positive: Decreased Breath Sounds, Wheezing (intermittent). negative: Chest Tender, Respiratory Distress, Accessory Muscle Use, Labored Respiration, Crackles, Rales, Rhonchi, Stridor Cardiovascular: positive: Regular Rhythm, Regular Rate, S1, S2. negative: Edema , Murmur Extremity: positive: Normal Capillary Refill Integumentary: positive: Normal Color Neurologic: positive: Fully Oriented, Alert, Normal Response, Responsive. negative: Sensory Deficit, Confused, Disoriented Heart Score/ECG Review - History History: Highly suspicious - Electrocardiogram EKG: Non specific repolarization disturbance - Age Age: >/= 65 - Risk Factors Risk Factors Heart Score: No Hx Hypercholesterolemia, Yes Hx Hypertension, Yes Hx Diabetes, No Smoking History, No Positive family hx of cardiac disease, No Hx Obesity Based on the list above the patient has:: 1-2 risk factors - Troponin Troponin: </= normal limit - Score Heart Score - Total: 6 ED Treatment Course - LABORATORY CBC & Chemistry Diagram: 07/29/19 09:39 07/29/19 09:39 - ADDITIONAL ORDERS Additional order review: Laboratory Results 07/29/19 07/29/19 09:39 09:39 Sodium 129 L Potassium 4.2 Chloride 91 L Carbon Dioxide 32 Anion Gap 6 L BUN 19.4 H Creatinine 0.7 Est GFR (CKD-EPI)AfAm 92.86 Est GFR (CKD-EPI)NonAf 80.12 Random Glucose 76 Calcium 9.3 Total Bilirubin 0.4 AST 17 ALT 20 Alkaline Phosphatase 45 Creatine Kinase 35 Troponin I < 0.02 Total Protein 7.6 Albumin 4.0 07/29/19 09:39 RBC 4.40 MCV 84.1 MCHC 32.0 RDW 15.6 D MPV 7.6 Neutrophils % 64.5 D Lymphocytes % 23.7 D Monocytes % 9.6 D Eosinophils % 1.0 D Basophils % 1.2 D - RADIOLOGY Radiology Studies Ordered: Category Date Time Status CHEST PA & LAT [RAD] Stat Radiology 07/29/19 09:33 Completed - Medications Given in the ED: ED Medications Discontinued Medications Generic Name Dose Route Start Last Admin Trade Name Freq PRN Reason Stop Dose Admin Albuterol/Ipratropium 1 amp 07/29/19 09:33 07/29/19 09:49 Duoneb - NEB 07/29/19 09:34 1 amp ONCE ONE Administration Aspirin 81 mg 07/29/19 09:33 07/29/19 09:49 Asa - PO 07/29/19 09:34 81 mg ONCE ONE Administration Medical Decision Making - Medical Decision Making 07/29/19 11:26 EKG shows NSR, HR 81, QTc 427, normalization of TWI V2-5 compared to 01/15/19 Given aspirin, duoneb, zofran 83yF w PMHx chronic asthma, COPD not O2 dep, T2DM, HTN, Arthritis, s/pTB s/p rt upper lobectomy in , CAD s/p CABG presenting w exertional chest pain and and SOB d/t unstable angina (exertional chest pain, ST changes). Normal trop. Also has hyponatremia Na 129. Low concern for PNA (no CXR focal consolidation) vs CHF exacerbation (no extremity edema). Given aspirin, duoneb, zofran. Consulted Dr Jena uriarte - will evaluate pt Admitted tele/obvs Dr Kc for unstable angina r/o ACS (elevated HEART score 6). Discussed need for stress test - pending 2nd trop Discharge - Discharge Information Problems reviewed: Yes Clinical Impression/Diagnosis: Unstable angina, Hyponatremia Condition: Stable - Follow up/Referral - Patient Discharge Instructions - Post Discharge Activity
[2019-07-29] MEDS ORDERED: ONDANSETRON 4 MG/2 ML VIAL ONE (09:27)
[2019-07-29] MEDS ORDERED: ASPIRIN 81 MG CHEWABLE TABLETS PO ONE (09:33)
[2019-07-29] MEDS ORDERED: ALBUTEROL SO4 2.5/IPRATROPIUM 0.5 INH SOL 3 ML VIAL.NEB. NEB ONE ×2 (09:33→09:37)
[2019-07-29] MEDS ORDERED: ASPIRIN 81 MG CHEWABLE TABLETS ONE (09:38)
[2019-07-29 09:55] LABS: BASO % 1.2 % (0-2.0); HEMOGLOBIN 11.9 GM/dL (10.7-15.3); LYMPH % 23.7 % (8-40); MCH 26.9 pg (25.7-33.7); MEAN CELL VOLUME 84.1 fl (80-96); MEAN PLT VOLUME 7.6 fl (7.5-11.1); MONO % 9.6 % (3.8-10.2); NEUT % 64.5 % (42.8-82.8); PLATELET COUNT 310 K/MM3 (134-434); RDW 15.6 % (11.6-15.6)
[2019-07-29 10:25] LABS: BILIRUBIN,TOTAL 0.4 mg/dL (0.2-1); BLOOD UREA NITROGEN 19.4 mg/dL (7-18); CALCIUM 9.3 mg/dL (8.5-10.1); CREATININE 0.7 mg/dL (0.55-1.3); POTASSIUM 4.2 mmol/L (3.5-5.1); TOT PROT 7.6 g/dl (6.4-8.2)
--- NOTE | 2019-07-29 11:29 | PDOC ---
Documentation entered by Nora Pineda SCRIBE, acting as scribe for Troy Rubin MD. Troy Rubin MD: This documentation has been prepared by the Miriam gates Brenda, SCRIBE, under my direction and personally reviewed by me in its entirety. I confirm that the documentation accurately reflects all work, treatment, procedures, and medical decision making performed by me. Attending Attestation - Resident Resident Name: PalmaGideon - ED Attending Attestation I have performed the following: I have examined & evaluated the patient, The case was reviewed & discussed with the resident, I agree w/resident's findings & plan, Exceptions are as noted - HPI HPI: 07/29/19 09:34 83y F hx of copd, dm2, htn, cad sp CABG, tb sp lobectomy presents with exertional midsternal cp/sob for the past week with decreased excercise tolerance. Denies any associated cough,n/v, diaprhoesis. Pt denies any fever/ chills, cough, diarrhea, dysuria, melena, bpr. Pt called dr. foreman who told her to come to the ED for evaluation. Pt denie sany current cp exam: GENERAL: The patient is awake, alert, and fully oriented, Nontoxic - in no acute distress. HEAD: Normocephalic, atraumatic. EYES: extraocular movements intact, sclera anicteric, conjunctiva clear. ENT: Normal voice, Moist mucous membranes. NECK: Normal range of motion, supple LUNGS: Scattered wheezing bilaterally, no acute respiratory distress HEART: Regular rate and rhythm, normal S1 and S2 without murmur, rub or gallop. ABDOMEN: Soft, nontender, No guarding, no rebound. No CVA tenderness EXTREMITIES: Normal range of motion, no edema. NEUROLOGICAL: No facial assymetry, Normal speech, PSYCH: Normal mood, normal affect. SKIN: Warm, Dry, normal turgor, Patients EKG noted for psuedonormalization of flipped T waves in anterior leads - will admit for ACS w/o will dw dr. foreman - Physicial Exam PE: 08/02/19 10:25 see above - Medical Decision Making 08/02/19 10:25 see above Heart Score/ECG Review - ECG Impressions Comment:: 07/29/19 11:31 Twelve-lead EKG was performed and reviewed by me. There is normal sinus rhythm with a normal rate. rate of 81 abnormal r wave progression pseudonormalization of t wave changes form 01/15/2019
--- NOTE | 2019-07-29 12:53 | CON.CARD ---
Consult Consult Specialty:: Cardiology Referred by:: Chris Kc MD Reason for Consultation:: Chest pain, dyspnea - History of Present Illness Chief Complaint: Chest pain, dyspnea History of Present Illness: 83f history of chronic asthma, COPD not O2 dep with h/o flare, DM type 2, HTN, Arthritis, s/pTB s/p rt upper lobectomy in , CAD s/p CABG, bilateral carotid stenosis presents with exertional midsternal cp/sob for the past week with decreased excercise tolerance. Denies any associated cough, palpitations, orthopnea, PND or LE edema. Pt called dr. kc who told her to come to the ED for evaluation. 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 ) Psych: Yes: Anxiety, Other (RLS) Musculoskeletal: Yes: Osteoarthritis (spine) ENT: Yes: Sinusitis Endocrine: Yes: Diabetes Mellitus - Past Surgical History Past Surgical History: Yes: CABG, Cataract Removal, Cholecystectomy, Thoracotomy - Alcohol/Substance Use Hx Alcohol Use: No History of Substance Use: reports: None - Smoking History Smoking history: Former smoker Have you smoked in the past 12 months: No Aproximately how many cigarettes per day: 0 If you are a former smoker, when did you quit?: 40yrs - Social History ADL: Independent History of Recent Travel: No Home Medications - Allergies Allergies/Adverse Reactions: Allergies Allergy/AdvReac Type Severity Reaction Status Date / Time No Known Drug Allergies Allergy Unknown Verified 07/29/19 08:49 MOLD Allergy RESP Uncoded 07/29/19 08:49 SYMPTOMS lactose intolerance AdvReac Unknown Difficulty Uncoded 07/29/19 08:49 Breathing - Home Medications Home Medications: Ambulatory Orders Albuterol 2.5/Ipratropium 0.5 [Duoneb -] 1 amp NEB RTID amp 11/01/18 Aspirin [ASA -] 81 mg PO DAILY #30 tab.chew 11/01/18 Nateglinide [Starlix (Nf) -] 60 mg PO TID 12/28/18 Pravastatin Sodium [Pravachol -] 40 mg PO HS 12/28/18 Amlodipine Besylate [Norvasc -] 5 mg PO DAILY tablet 01/19/19 Nebivolol [Bystolic -] 10 mg PO DAILY tab 01/19/19 Azithromycin 750 mg PO WEEKLY 07/29/19 Budesonide/Formeterol Fumarate [SYMBICORT 160/4.5mcg -] 1 inh IH BID 07/29/19 Metformin HCl [Glucophage] 500 mg PO TID 07/29/19 Nebivolol HCl [Bystolic] 10 mg PO DAILY 07/29/19 predniSONE [Deltasone -] 20 mg PO DAILY 07/29/19 Review of Systems - Review of Systems Cardiovascular: reports: Chest Pain, Shortness of Breath Respiratory: reports: Exercise Intolerance, SOB, SOB on Exertion Vital Signs: Vital Signs Temperature 97.7 F 07/29/19 08:50 Pulse Rate 72 07/29/19 10:21 Respiratory Rate 22 H 07/29/19 10:21 Blood Pressure 160/57 L 07/29/19 10:21 O2 Sat by Pulse Oximetry (%) 100 07/29/19 10:21 Constitutional: Yes: No Distress, Calm, Thin Neck: Yes: Supple Respiratory: Yes: Regular, CTA Bilaterally Gastrointestinal: Yes: Normal Bowel Sounds, Soft Cardiovascular: Yes: Regular Rate and Rhythm JVD: No Carotid Bruit: No Heart Sounds: Yes: S1, S2 Murmur: Yes: Systolic Murmur, Grade 1 Edema: No - Other Data Labs, Other Data: CBC, BMP 07/29/19 09:39 07/29/19 09:39 Troponin, BNP 07/29/19 09:39 Troponin I < 0.02 Troponin, BNP 07/29/19 09:39 Troponin I < 0.02 NSR @ 81 LAE, inferolateral TWI Imaging - Results Chest X-ray: Report Reviewed (Chronic lung disease) Ultrasound: Report Reviewed (07/26/2019 Bilateral 50-69% carotid stenosis) Problem List - Problems (1) S/P CABG (coronary artery bypass graft) Code(s): Z95.1 - PRESENCE OF AORTOCORONARY BYPASS GRAFT (2) Coronary artery disease Code(s): I25.10 - ATHSCL HEART DISEASE OF [place] CORONARY ARTERY W/O ANG PCTRS Qualifiers: Coronary Disease-Associated Artery/Lesion type: [place] artery [place] vs. transplanted heart: [place] heart Associated angina: without angina Qualified Code(s): I25.10 - Atherosclerotic heart disease of [place] coronary artery without angina pectoris (3) Diastolic dysfunction Code(s): I51.89 - OTHER ILL-DEFINED HEART DISEASES (4) COPD exacerbation Code(s): J44.1 - CHRONIC OBSTRUCTIVE PULMONARY DISEASE W (ACUTE) EXACERBATION (5) Carotid artery stenosis Code(s): I65.29 - OCCLUSION AND STENOSIS OF UNSPECIFIED CAROTID ARTERY Qualifiers: Laterality: bilateral Qualified Code(s): I65.23 - Occlusion and stenosis of bilateral carotid arteries (6) Hx of tuberculosis Code(s): Z86.11 - PERSONAL HISTORY OF TUBERCULOSIS (7) Hypertensive heart disease Code(s): I11.9 - HYPERTENSIVE HEART DISEASE WITHOUT HEART FAILURE Qualifiers: Heart failure presence: unspecified whether heart failure present Qualified Code(s): I11.9 - Hypertensive heart disease without heart failure (8) SOB (shortness of breath) Code(s): R06.02 - SHORTNESS OF BREATH (9) T2DM (type 2 diabetes mellitus) Code(s): E11.9 - TYPE 2 DIABETES MELLITUS WITHOUT COMPLICATIONS Qualifiers: Diabetes mellitus terminal block assembler insulin use: without chcf use Diabetes mellitus complication status: without complication Qualified Code(s): E11.9 - Type 2 diabetes mellitus without complications (10) Carotid stenosis, bilateral Code(s): I65.23 - OCCLUSION AND STENOSIS OF BILATERAL CAROTID ARTERIES Assessment/Plan 01/16/2019 No ischemia, normal LVEF 01/15/2019 Normal LV and RV size and fxn, mild MR 01/09/2019 Chest CTA: No PE, extensive bilateral upper lobe fibrotic changes and chronic inflammatory lower lobe changes, stable LLL pulm nodule, mild dilated main PA echo 10/30/18 EF 55% mod mr/tr mild pulm htn 1. AE COPD 2. LV diastolic dysfunction 3. CAD s/p CABG, angina pectoris 4. Hypertensive heart disease 5. Type 2 DM not at goal control Ha1c 8.1% 6. TB s/p rt upper lobectomy in s 7. Nonobstructive carotid stenosis P:1. BD, IV steroids with GI protection, empiric abx course, O2 as needed, check BNP 2. Continue ASA 81 qd, Pravachol 40 qd, Norvasc 5 qd, Bystolic 10 qd, diuresis as needed 3. Ruled out for MS 4. Thank you for consultative opportunity
[2019-07-29] MEDS ORDERED: ALBUTEROL SO4 2.5/IPRATROPIUM 0.5 INH SOL 3 ML VIAL.NEB. NEB PRN (16:21)
[2019-07-29 16:58] LABS: N-TERMINAL BNP 2217.7 pg/ml (5-450)
--- NOTE | 2019-07-29 18:31 | HP ---
Admitting History and Physical - Primary Care Physician PCP: Chris Kc - Admission Chief Complaint: chest pressure on exertion History of Present Illness: 83 YOF who has been experiencing SSCP on exertion over the past several days but not at rest. She has a significant past medical history of chronic asthma, COPD (not O2 dep), DM type 2, HTN, Arthritis, s/pTB (s/p rt upper lobectomy in ), CAD (s/p CABG,); since her last hospitalization for COPD(in January of this year) she has been well until just recently when she felt a central chest pressure discomfort on mild to moderate exertion. It was non radiating and denied any sweats, diffuse weakness, SOB; cough, nasal congestion, palpitations , n-v,etc. With all of her pulmonary morbidities, she hadn't c/o CP prior to her recent illnesses, though may have had chest discomfort prior to her CABG (> 5 yrs ago). She states that her BP and BS are in good range. She denied doing any strenuous activities or getting agitated prior to this event. 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 ) Psych: Yes: Anxiety, Other (RLS) Musculoskeletal: Yes: Osteoarthritis (spine) ENT: Yes: Sinusitis Endocrine: Yes: Diabetes Mellitus - Past Surgical History Past Surgical History: Yes: CABG, Cataract Removal, Cholecystectomy, Thoracotomy - Smoking History Smoking history: Former smoker Have you smoked in the past 12 months: No Aproximately how many cigarettes per day: 0 If you are a former smoker, when did you quit?: 40yrs - Alcohol/Substance Use Hx Alcohol Use: No History of Substance Use: reports: None - Social History Usual Living Arrangement: Yes: Alone ADL: Independent History of Recent Travel: No Home Medications - Allergies Allergies/Adverse Reactions: Allergies Allergy/AdvReac Type Severity Reaction Status Date / Time No Known Drug Allergies Allergy Unknown Verified 07/29/19 08:49 MOLD Allergy RESP Uncoded 07/29/19 08:49 SYMPTOMS lactose intolerance AdvReac Unknown Difficulty Uncoded 07/29/19 08:49 Breathing - Home Medications Home Medications: Ambulatory Orders Albuterol 2.5/Ipratropium 0.5 [Duoneb -] 1 amp NEB RTID amp 11/01/18 Aspirin [ASA -] 81 mg PO DAILY #30 tab.chew 11/01/18 Nateglinide [Starlix (Nf) -] 60 mg PO TID 12/28/18 Pravastatin Sodium [Pravachol -] 40 mg PO HS 12/28/18 Amlodipine Besylate [Norvasc -] 5 mg PO DAILY tablet 01/19/19 Nebivolol [Bystolic -] 10 mg PO DAILY tab 01/19/19 Azithromycin 750 mg PO WEEKLY 07/29/19 Budesonide/Formeterol Fumarate [SYMBICORT 160/4.5mcg -] 1 inh IH BID 07/29/19 Metformin HCl [Glucophage] 500 mg PO TID 07/29/19 Nebivolol HCl [Bystolic] 10 mg PO DAILY 07/29/19 predniSONE [Deltasone -] 20 mg PO DAILY 07/29/19 Family Medical History Family History: Unremarkable Review of Systems - Review of Systems Constitutional: reports: No Symptoms Eyes: reports: No Symptoms HENT: reports: No Symptoms Neck: reports: No Symptoms Cardiovascular: reports: Chest Pain Respiratory: reports: Exercise Intolerance Gastrointestinal: reports: No Symptoms Genitourinary: reports: No Symptoms Breasts: reports: No Symptoms Reported Musculoskeletal: reports: No Symptoms Integumentary: reports: No Symptoms Neurological: reports: No Symptoms Endocrine: reports: No Symptoms Hematology/Lymphatic: reports: No Symptoms Psychiatric: reports: No Symptoms Physical Examination Vital Signs: Vital Signs Temperature 98.1 F 07/29/19 17:50 Pulse Rate 97 H 07/29/19 17:50 Respiratory Rate 16 07/29/19 17:50 Blood Pressure 119/86 07/29/19 17:50 O2 Sat by Pulse Oximetry (%) 97 07/29/19 17:50 Findings/Remarks: skin--slight pallor;no lesions appreciated eyes--midline; EOMI oral--no mucosal lesions neck--no masses, bruits; ROM intact lungs--bilat rhonchi; insp & exp heart--RR breasts--deferred chest--old thoracotomy scar and sternotmy scar; no gross tenderness abd--soft, NT, ND ext--no CCE; ROM painless neuro--alert; calm lucid; coherent non ill or toxic appearing; moves all extrems ; good eye contact CBCD WBC 7.0 K/mm3 (4.0-10.0) 07/29/19 09:39 RBC 4.40 M/mm3 (3.60-5.2) 07/29/19 09:39 Hgb 11.9 GM/dL (10.7-15.3) 07/29/19 09:39 Hct 37.0 % (32.4-45.2) 07/29/19 09:39 MCV 84.1 fl (80-96) 07/29/19 09:39 MCHC 32.0 g/dl (32.0-36.0) 07/29/19 09:39 RDW 15.6 % (11.6-15.6) D 07/29/19 09:39 Plt Count 310 K/MM3 (134-434) 07/29/19 09:39 MPV 7.6 fl (7.5-11.1) 07/29/19 09:39 CMP Sodium 129 mmol/L (136-145) L 07/29/19 09:39 Potassium 4.2 mmol/L (3.5-5.1) 07/29/19 09:39 Chloride 91 mmol/L (98-107) L 07/29/19 09:39 Carbon Dioxide 32 mmol/L (21-32) 07/29/19 09:39 Anion Gap 6 MMOL/L (8-16) L 07/29/19 09:39 BUN 19.4 mg/dL (7-18) H 07/29/19 09:39 Creatinine 0.7 mg/dL (0.55-1.3) 07/29/19 09:39 Random Glucose 76 mg/dL (74-106) 07/29/19 09:39 Calcium 9.3 mg/dL (8.5-10.1) 07/29/19 09:39 Total Bilirubin 0.4 mg/dL (0.2-1) 07/29/19 09:39 AST 17 U/L (15-37) 07/29/19 09:39 ALT 20 U/L (13-61) 07/29/19 09:39 Alkaline Phosphatase 45 U/L (45-117) 07/29/19 09:39 Total Protein 7.6 g/dl (6.4-8.2) 07/29/19 09:39 Albumin 4.0 g/dl (3.4-5.0) 07/29/19 09:39 CARDIAC ENZYMES Creatine Kinase 35 U/L (26-192) 07/29/19 09:39 Troponin I < 0.02 ng/ml (0.00-0.05) 07/29/19 12:09 Labs: CBC, BMP 07/29/19 09:39 07/29/19 09:39 Imaging - Results Chest X-ray: Report Reviewed EKG: Report Reviewed Problem List - Problems (1) Chest pain in adult Assessment/Plan: centralized CP; on exertion; w/o any acute resp Sx; Given Hx of CABG & CAD (and carotid dz) she is of a higher risk for coronary ischemia. PLAN: enzymes; may need stress test Code(s): R07.9 - CHEST PAIN, UNSPECIFIED (2) COPD (chronic obstructive pulmonary disease) Assessment/Plan: has chronic wheezing & rhonchi. Denies any expectoration; nasal Sx, malaise to suggest infected state; PLAN: short course of steroids Code(s): J44.9 - CHRONIC OBSTRUCTIVE PULMONARY DISEASE, UNSPECIFIED Qualifiers: COPD type: unspecified COPD Qualified Code(s): J44.9 - Chronic obstructive pulmonary disease, unspecified (3) Hyponatremia Assessment/Plan: mild; will repeat in AM Code(s): E87.1 - HYPO-OSMOLALITY AND HYPONATREMIA (4) Diastolic dysfunction Assessment/Plan: As indicated by high BNP; CXR w/o vasc congestion Code(s): I51.89 - OTHER ILL-DEFINED HEART DISEASES (5) Abnormal chest xray Assessment/Plan: chronically abnormal Code(s): R93.89 - ABNORMAL FINDINGS ON DX IMAGING OF OTH BODY STRUCTURES (6) T2DM (type 2 diabetes mellitus) Assessment/Plan: recent A1c made worse by steroid use; but FSBS have been in low 100's. 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 Managemt as outlined above ~~~~~~~~~~~~~~~~~~~~~~~~~~~ Dr Kc
[2019-07-29] MEDS ORDERED: FUROSEMIDE 20 MG TABLET (FP) PO ONE (19:00)
[2019-07-29] MEDS: methylPREDNISolone NA SUCC 40 MG/1 ML VIAL IVPUSH SCH (19:40)
[2019-07-29] MEDS: NEBIVOLOL 10 MG TABLET (FP) PO SCH (19:42)
[2019-07-29] MEDS: ATORVASTATIN CA 20 MG TABLET (FP) PO SCH (21:09)
[2019-07-29] MEDS: BUDESONIDE/FORMETEROL FUMARATE 160/4.5 mcg INHALER IH SCH (22:22)
[2019-07-30] MEDS: methylPREDNISolone NA SUCC 40 MG/1 ML VIAL IVPUSH SCH ×2 (02:29→10:47)
[2019-07-30] MEDS ORDERED: GLIMEPIRIDE 2 MG TABLET (FP) PO SCH (07:00)
[2019-07-30 08:29] LABS: CHOLESTEROL 175 mg/dL (50-200); HDL CHOLESTEROL 70 mg/dL (40-60); LDL CHOLESTEROL (ONLY SJRH) 77 mg/dL (5-100); TRIGLYCERIDES 71 mg/dL (0-150)
[2019-07-30 08:35] LABS: ANION GAP 10 MMOL/L (8-16); BLOOD UREA NITROGEN 24.6 mg/dL (7-18); CALCIUM 9.9 mg/dL (8.5-10.1); CHLORIDE 91 mmol/L (98-107); CO2 29 mmol/L (21-32); CREATININE 0.8 mg/dL (0.55-1.3); GLUCOSE,RANDOM 218 mg/dL (74-106); POTASSIUM 4.8 mmol/L (3.5-5.1); SODIUM 129 mmol/L (136-145)
--- NOTE | 2019-07-30 10:14 | EKG ---
Test Reason : Blood Pressure : / mmHG Vent. Rate : 080 BPM Atrial Rate : 080 BPM P-R Int : 154 ms QRS Dur : 096 ms QT Int : 396 ms P-R-T Axes : 080 071 072 degrees QTc Int : 456 ms NORMAL SINUS RHYTHM NONSPECIFIC T WAVE ABNORMALITY ABNORMAL ECG WHEN COMPARED WITH ECG OF 15-JAN-2019 09:47, NONSPECIFIC T WAVE ABNORMALITY, WORSE IN INFERIOR LEADS T WAVE INVERSION NO LONGER EVIDENT IN ANTEROLATERAL LEADS Confirmed by Toby Benson MD ([id number]) on 07/30/2019 10:14:16 AM Referred By: ERVIN MCELROY Confirmed By:Toby Benson MD
[2019-07-30] MEDS: NEBIVOLOL 10 MG TABLET (FP) PO SCH (10:47)
[2019-07-30] MEDS: ENOXAPARIN NA (PORCINE) 40 MG/0.4 ML DISP.SYRIN SQ SCH (10:47)
[2019-07-30] MEDS: ASPIRIN 81 MG CHEWABLE TABLETS PO SCH (10:47)
[2019-07-30] MEDS: amLODIPine BESYLATE 5 MG TABLET (FP) PO SCH (10:47)
[2019-07-30] MEDS: PANTOPRAZOLE 20 MG TABLET (FP) PO SCH (10:47)
[2019-07-30] MEDS: BUDESONIDE/FORMETEROL FUMARATE 160/4.5 mcg INHALER IH SCH ×2 (10:51→22:08)
--- NOTE | 2019-07-30 12:09 | EKG ---
Test Reason : Blood Pressure : / mmHG Vent. Rate : 081 BPM Atrial Rate : 081 BPM P-R Int : 164 ms QRS Dur : 092 ms QT Int : 368 ms P-R-T Axes : 075 082 -63 degrees QTc Int : 427 ms NORMAL SINUS RHYTHM POSSIBLE LEFT ATRIAL ENLARGEMENT ANTERIOR INFARCT , AGE UNDETERMINED T WAVE ABNORMALITY, CONSIDER INFEROLATERAL ISCHEMIA ABNORMAL ECG WHEN COMPARED WITH ECG OF 15-JAN-2019 09:47, ANTERIOR INFARCT IS NOW PRESENT T WAVE INVERSION NOW EVIDENT IN INFERIOR LEADS T wave inversions resolved in anterior leads Confirmed by MD Judy, Jake ([id number]) on 07/30/2019 12:08:52 PM Referred By: Confirmed By:Jake Kim MD
--- NOTE | 2019-07-30 12:17 | PN ---
Progress Note, Physician History of Present Illness: Exertional midsternal cp/sob for the past week with decreased excercise tolerance improving with COPD treatment and diuresis, now ambulating in hallway. - Current Medication List Current Medications: Active Medications Albuterol/Ipratropium (Duoneb -) 1 amp NEB Q6H PRN PRN Reason: SHORTNESS OF BREATH Amlodipine Besylate (Norvasc -) 5 mg PO DAILY [facility] Last Admin: 07/30/19 10:47 Dose: 5 mg Aspirin (Asa -) 81 mg PO DAILY [facility] Last Admin: 07/30/19 10:47 Dose: 81 mg Atorvastatin Calcium (Lipitor -) 20 mg PO HS [facility] Last Admin: 07/29/19 21:09 Dose: 20 mg Budesonide/Formoterol Fumarate (Symbicort 160/4.5mcg -) 2 puff IH BID [facility] Last Admin: 07/30/19 10:51 Dose: 2 puff Enoxaparin Sodium (Lovenox -) 40 mg SQ DAILY [facility] Last Admin: 07/30/19 10:47 Dose: 40 mg Metformin HCl (Glucophage Xr -) 500 mg PO BIDAC [facility] Last Admin: 07/30/19 06:23 Dose: 500 mg Nebivolol (Bystolic -) 10 mg PO DAILY [facility] Last Admin: 07/30/19 10:47 Dose: 10 mg Pantoprazole Sodium (Protonix -) 20 mg PO DAILY [facility] Last Admin: 07/30/19 10:47 Dose: 20 mg - Objective Vital Signs: Vital Signs Temperature 98.3 F 07/30/19 06:00 Pulse Rate 80 07/30/19 06:00 Respiratory Rate 20 07/30/19 09:00 Blood Pressure 137/59 L 07/30/19 06:00 O2 Sat by Pulse Oximetry (%) 98 07/30/19 09:00 Constitutional: Yes: No Distress, Calm, Thin Neck: Yes: Supple Cardiovascular: Yes: Regular Rate and Rhythm Respiratory: Yes: Regular, CTA Bilaterally Gastrointestinal: Yes: Normal Bowel Sounds, Soft Edema: No Labs: CBC, BMP 07/29/19 09:39 07/30/19 06:05 - ....Imaging EKG: Report Reviewed (Tele: NSR) Problem List - Problems (1) S/P CABG (coronary artery bypass graft) Code(s): Z95.1 - PRESENCE OF AORTOCORONARY BYPASS GRAFT (2) Coronary artery disease Code(s): I25.10 - ATHSCL HEART DISEASE OF [place] CORONARY ARTERY W/O ANG PCTRS Qualifiers: Coronary Disease-Associated Artery/Lesion type: [place] artery [place] vs. transplanted heart: [place] heart Associated angina: without angina Qualified Code(s): I25.10 - Atherosclerotic heart disease of [place] coronary artery without angina pectoris (3) Diastolic dysfunction Code(s): I51.89 - OTHER ILL-DEFINED HEART DISEASES (4) COPD exacerbation Code(s): J44.1 - CHRONIC OBSTRUCTIVE PULMONARY DISEASE W (ACUTE) EXACERBATION (5) Carotid artery stenosis Code(s): I65.29 - OCCLUSION AND STENOSIS OF UNSPECIFIED CAROTID ARTERY Qualifiers: Laterality: bilateral Qualified Code(s): I65.23 - Occlusion and stenosis of bilateral carotid arteries (6) Hx of tuberculosis Code(s): Z86.11 - PERSONAL HISTORY OF TUBERCULOSIS (7) Hypertensive heart disease Code(s): I11.9 - HYPERTENSIVE HEART DISEASE WITHOUT HEART FAILURE Qualifiers: Heart failure presence: unspecified whether heart failure present Qualified Code(s): I11.9 - Hypertensive heart disease without heart failure (8) SOB (shortness of breath) Code(s): R06.02 - SHORTNESS OF BREATH (9) T2DM (type 2 diabetes mellitus) Code(s): E11.9 - TYPE 2 DIABETES MELLITUS WITHOUT COMPLICATIONS Qualifiers: Diabetes mellitus alf insulin use: without alf use Diabetes mellitus complication status: without complication Qualified Code(s): E11.9 - Type 2 diabetes mellitus without complications (10) Carotid stenosis, bilateral Code(s): I65.23 - OCCLUSION AND STENOSIS OF BILATERAL CAROTID ARTERIES Assessment/Plan 01/16/2019 No ischemia, normal LVEF 01/15/2019 Normal LV and RV size and fxn, mild MR 01/09/2019 Chest CTA: No PE, extensive bilateral upper lobe fibrotic changes and chronic inflammatory lower lobe changes, stable LLL pulm nodule, mild dilated main PA echo 10/30/18 EF 55% mod mr/tr mild pulm htn 1. AE COPD 2. LV diastolic dysfunction 3. CAD s/p CABG, angina pectoris 4. Hypertensive heart disease 5. Type 2 DM not at goal control Ha1c 8.1% 6. 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 Nonobstructive carotid stenosis P:1. BD, O2 as needed, off IV steroids 2. Continue ASA 81 qd, Pravachol 40 qd, Norvasc 5 qd, Bystolic 10 qd, add Aldactone 25 qd 3. Ruled out for [place] 4. May undergo stress testing as outpatient once pulmonary status stable
[2019-07-30] MEDS: SPIRONOLACTONE 25 MG TABLET (FP) PO SCH (14:49)
[2019-07-30] MEDS ORDERED: predniSONE 20 MG TABLET (UD) PO ONE (15:05)
[2019-07-30] MEDS ORDERED: FUROSEMIDE 20 MG TABLET (FP) PO ONE (15:06)
--- NOTE | 2019-07-30 15:16 | PN ---
Progress Note (short form) - Note Progress Note: Current Medications Albuterol/Ipratropium (Duoneb -) 1 amp NEB Q6H PRN PRN Reason: SHORTNESS OF BREATH Amlodipine Besylate (Norvasc -) 5 mg PO DAILY [facility] Last Admin: 07/30/19 10:47 Dose: 5 mg Aspirin (Asa -) 81 mg PO DAILY [facility] Last Admin: 07/30/19 10:47 Dose: 81 mg Atorvastatin Calcium (Lipitor -) 20 mg PO HS [facility] Last Admin: 07/29/19 21:09 Dose: 20 mg Budesonide/Formoterol Fumarate (Symbicort 160/4.5mcg -) 2 puff IH BID [facility] Last Admin: 07/30/19 10:51 Dose: 2 puff Enoxaparin Sodium (Lovenox -) 40 mg SQ DAILY [facility] Last Admin: 07/30/19 10:47 Dose: 40 mg Furosemide (Lasix -) 20 mg PO ONCE ONE Stop: 07/30/19 15:07 Metformin HCl (Glucophage Xr -) 500 mg PO BIDAC [facility] Last Admin: 07/30/19 06:23 Dose: 500 mg Nebivolol (Bystolic -) 10 mg PO DAILY [facility] Last Admin: 07/30/19 10:47 Dose: 10 mg Pantoprazole Sodium (Protonix -) 20 mg PO DAILY [facility] Last Admin: 07/30/19 10:47 Dose: 20 mg Prednisone (Deltasone -) 40 mg PO ONCE ONE Stop: 07/30/19 15:06 Prednisone (Deltasone -) 20 mg PO DAILY [facility] Spironolactone (Aldactone -) 25 mg PO DAILY [facility] Last Admin: 07/30/19 14:49 Dose: 25 mg Laboratory Results - last 24 hr 07/29/19 07/30/19 07/30/19 12:09 06:05 06:05 Sodium 129 L Potassium 4.8 Chloride 91 L Carbon Dioxide 29 Anion Gap 10 BUN 24.6 H Creatinine 0.8 Est GFR (CKD-EPI)AfAm 79.02 Est GFR (CKD-EPI)NonAf 68.18 POC Glucometer Random Glucose 218 H Hemoglobin A1c % Calcium 9.9 Creatine Kinase 38 Troponin I < 0.02 < 0.02 B-Natriuretic Peptide 2217.7 H Triglycerides 71 Cholesterol 175 Total LDL Cholesterol 77 HDL Cholesterol 70 H TSH 0.68 07/30/19 07/30/19 07/30/19 06:05 06:15 11:48 Sodium Potassium Chloride Carbon Dioxide Anion Gap BUN Creatinine Est GFR (CKD-EPI)AfAm Est GFR (CKD-EPI)NonAf POC Glucometer 230 206 Random Glucose Hemoglobin A1c % 6.2 Calcium Creatine Kinase Troponin I B-Natriuretic Peptide Triglycerides Cholesterol Total LDL Cholesterol HDL Cholesterol TSH Vital Signs Temperature 98.5 F 07/30/19 14:00 Pulse Rate 85 07/30/19 14:00 Respiratory Rate 20 07/30/19 14:00 Blood Pressure 128/93 07/30/19 14:00 O2 Sat by Pulse Oximetry (%) 98 07/30/19 09:00 CC: chest discomfort on ambulation ``````````````````````````````````` skin--NL color lungs--bilat rhonchi heart--RR ext--no edema neuro--alert; coherent; lucid `````````````````````````````` summ > SOB--on exertion with substernal discomfort; brought upon by ambulation of 50ft. (informal)Oxygen sat on Room air during ambulation while symptomatic, registered at 86%: Cause can be pulmonary VS Cardiac. PLAN: cont prednisone; and Rx Lasix/Aldact; formal pre-post oximitry. D/c Obs status; change to inpatient admission. > Htn--BP in acceptable range > Hyponatremia--mild > DM--BS in low 200's but on steroids; A1c at 6.2 indicates good control over past 2-3 months. ~~~~~~~~~~~~~~~~~ dr Kc Problem List - Problems (1) Chest pain in adult Code(s): R07.9 - CHEST PAIN, UNSPECIFIED (2) COPD (chronic obstructive pulmonary disease) Code(s): J44.9 - CHRONIC OBSTRUCTIVE PULMONARY DISEASE, UNSPECIFIED Qualifiers: COPD type: unspecified COPD Qualified Code(s): J44.9 - Chronic obstructive pulmonary disease, unspecified (3) Hyponatremia Code(s): E87.1 - HYPO-OSMOLALITY AND HYPONATREMIA (4) Diastolic dysfunction Code(s): I51.89 - OTHER ILL-DEFINED HEART DISEASES (5) Abnormal chest xray Code(s): R93.89 - ABNORMAL FINDINGS ON DX IMAGING OF OTH BODY STRUCTURES (6) T2DM (type 2 diabetes mellitus) Code(s): E11.9 - TYPE 2 DIABETES MELLITUS WITHOUT COMPLICATIONS Qualifiers: Diabetes mellitus predatory animal exterminator insulin use: without penitentiary use Diabetes mellitus complication status: without complication Qualified Code(s): E11.9 - Type 2 diabetes mellitus without complications (7) Multiple environmental allergies Code(s): Z91.09 - OTH ALLERGY STATUS, OTH THAN TO DRUGS AND BIOLG SUBSTANCES (8) Hx of tuberculosis Code(s): Z86.11 - PERSONAL HISTORY OF TUBERCULOSIS
[2019-07-30] MEDS: ATORVASTATIN CA 20 MG TABLET (FP) PO SCH (22:08)
[2019-07-31] MEDS ORDERED: MIRTAZAPINE 15 MG TABLET (FP) PO ONE (01:45)
[2019-07-31 07:26] LABS: BLOOD UREA NITROGEN 29.1 mg/dL (7-18); CALCIUM 9.8 mg/dL (8.5-10.1); CREATININE 0.9 mg/dL (0.55-1.3); POTASSIUM 4.6 mmol/L (3.5-5.1)
[2019-07-31] MEDS ORDERED: ALBUTEROL SO4 2.5/IPRATROPIUM 0.5 INH SOL 3 ML VIAL.NEB. NEB STA (08:46)
[2019-07-31] MEDS ORDERED: predniSONE 20 MG TABLET (UD) PO SCH (10:00)
--- NOTE | 2019-07-31 10:26 | PN ---
Progress Note (short form) - Note Progress Note: Current Medications Amlodipine Besylate (Norvasc -) 5 mg PO DAILY [facility] Last Admin: 07/30/19 10:47 Dose: 5 mg Aspirin (Asa -) 81 mg PO DAILY [facility] Last Admin: 07/30/19 10:47 Dose: 81 mg Atorvastatin Calcium (Lipitor -) 20 mg PO HS [facility] Last Admin: 07/30/19 22:08 Dose: 20 mg Budesonide/Formoterol Fumarate (Symbicort 160/4.5mcg -) 2 puff IH BID [facility] Last Admin: 07/30/19 22:08 Dose: 2 puff Enoxaparin Sodium (Lovenox -) 40 mg SQ DAILY [facility] Last Admin: 07/30/19 10:47 Dose: 40 mg Metformin HCl (Glucophage Xr -) 500 mg PO BIDAC [facility] Last Admin: 07/31/19 06:18 Dose: 500 mg Nebivolol (Bystolic -) 10 mg PO DAILY [facility] Last Admin: 07/30/19 10:47 Dose: 10 mg Pantoprazole Sodium (Protonix -) 20 mg PO DAILY [facility] Last Admin: 07/30/19 10:47 Dose: 20 mg Prednisone (Deltasone -) 20 mg PO DAILY [facility] Spironolactone (Aldactone -) 25 mg PO DAILY [facility] Last Admin: 07/30/19 14:49 Dose: 25 mg Laboratory Results - last 24 hr 07/30/19 07/31/19 07/31/19 11:48 06:00 06:21 Sodium 132 L Potassium 4.6 Chloride 95 L Carbon Dioxide 29 Anion Gap 8 BUN 29.1 H Creatinine 0.9 Est GFR (CKD-EPI)AfAm 68.53 Est GFR (CKD-EPI)NonAf 59.13 POC Glucometer 206 205 Random Glucose 180 H Calcium 9.8 Vital Signs Temperature 98.3 F 07/31/19 08:38 Pulse Rate 97 H 07/31/19 09:23 Respiratory Rate 20 07/31/19 08:38 Blood Pressure 155/73 07/31/19 08:38 O2 Sat by Pulse Oximetry (%) 93 L 07/31/19 09:23 CC: feels better today, but was unable to sleep last PM ``````````````````````````````````` skin--NL color lungs--few rhonchi heart--RR ext--no edema neuro--alert; coherent; lucid `````````````````````````````` summ > SOB--on exertion; now seems to have resolved as she is able to walk freely over 100Ft w/o BARRIOS, CP, fatigue (much improved since 07/30/19), ambulatory oximetry reveals a saturation of 93% on RA. This may have been due to some degree of diastolic dysf though it is also possible it may have been caused by mld bronchospasm as well. PLAN: lower steroid; cont other meds > Hyponatremia--mild; improved > Insomnia--helped with Mirtazapine > DM--BS in low 200's but on steroids; A1c at 6.2 indicates good control over past 2-3 months. ~~~~~~~~~~~~~~~~~ dr Kc Problem List - Problems (1) Chest pain in adult Code(s): R07.9 - CHEST PAIN, UNSPECIFIED (2) COPD (chronic obstructive pulmonary disease) Code(s): J44.9 - CHRONIC OBSTRUCTIVE PULMONARY DISEASE, UNSPECIFIED Qualifiers: COPD type: unspecified COPD Qualified Code(s): J44.9 - Chronic obstructive pulmonary disease, unspecified (3) Hyponatremia Code(s): E87.1 - HYPO-OSMOLALITY AND HYPONATREMIA (4) Diastolic dysfunction Code(s): I51.89 - OTHER ILL-DEFINED HEART DISEASES (5) Abnormal chest xray Code(s): R93.89 - ABNORMAL FINDINGS ON DX IMAGING OF OTH BODY STRUCTURES (6) T2DM (type 2 diabetes mellitus) Code(s): E11.9 - TYPE 2 DIABETES MELLITUS WITHOUT COMPLICATIONS Qualifiers: Diabetes mellitus long-term insulin use: without long-term use Diabetes mellitus complication status: without complication Qualified Code(s): E11.9 - Type 2 diabetes mellitus without complications (7) Multiple environmental allergies Code(s): Z91.09 - OTH ALLERGY STATUS, OTH THAN TO DRUGS AND BIOLG SUBSTANCES (8) Hx of tuberculosis Code(s): Z86.11 - PERSONAL HISTORY OF TUBERCULOSIS
[2019-07-31] MEDS: PANTOPRAZOLE 20 MG TABLET (FP) PO SCH (10:46)
[2019-07-31] MEDS: NEBIVOLOL 10 MG TABLET (FP) PO SCH (10:46)
[2019-07-31] MEDS: ASPIRIN 81 MG CHEWABLE TABLETS PO SCH (10:47)
[2019-07-31] MEDS: BUDESONIDE/FORMETEROL FUMARATE 160/4.5 mcg INHALER IH SCH ×2 (10:47→21:25)
[2019-07-31] MEDS: amLODIPine BESYLATE 5 MG TABLET (FP) PO SCH (10:47)
[2019-07-31] MEDS: SPIRONOLACTONE 25 MG TABLET (FP) PO SCH (10:47)
[2019-07-31] MEDS: ENOXAPARIN NA (PORCINE) 40 MG/0.4 ML DISP.SYRIN SQ SCH (10:47)
[2019-07-31 14:49] VITALS: BMI 18.5
[2019-07-31] MEDS: ATORVASTATIN CA 20 MG TABLET (FP) PO SCH (21:25)
[2019-07-31] MEDS ORDERED: MELATONIN 5 MG TABLETS PO ONE (21:30)
[2019-07-31] MEDS ORDERED: MIRTAZAPINE 15 MG TABLET (FP) PO SCH (22:00)
[2019-08-01] MEDS: ENOXAPARIN NA (PORCINE) 40 MG/0.4 ML DISP.SYRIN SQ SCH (09:42)
[2019-08-01] MEDS: NEBIVOLOL 10 MG TABLET (FP) PO SCH (09:43)
[2019-08-01] MEDS: SPIRONOLACTONE 25 MG TABLET (FP) PO SCH (09:43)
[2019-08-01] MEDS: ASPIRIN 81 MG CHEWABLE TABLETS PO SCH (09:43)
[2019-08-01] MEDS: amLODIPine BESYLATE 5 MG TABLET (FP) PO SCH (09:43)
[2019-08-01] MEDS: PANTOPRAZOLE 20 MG TABLET (FP) PO SCH (09:46)
[2019-08-01] MEDS: BUDESONIDE/FORMETEROL FUMARATE 160/4.5 mcg INHALER IH SCH (09:46)
[2019-08-01] MEDS ORDERED: predniSONE 10 MG TABLET (UD) PO SCH (10:00)
--- NOTE | 2019-08-01 10:21 | PN ---
Progress Note, Physician History of Present Illness: Exertional midsternal cp/sob for the past week with decreased exercise tolerance and hypoxia improving with COPD treatment and diuresis back to baseline. Ready for d/c. - Current Medication List Current Medications: Active Medications Amlodipine Besylate (Norvasc -) 5 mg PO DAILY [facility] Last Admin: 08/01/19 09:43 Dose: 5 mg Aspirin (Asa -) 81 mg PO DAILY [facility] Last Admin: 08/01/19 09:43 Dose: 81 mg Atorvastatin Calcium (Lipitor -) 20 mg PO HS [facility] Last Admin: 07/31/19 21:25 Dose: 20 mg Budesonide/Formoterol Fumarate (Symbicort 160/4.5mcg -) 2 puff IH BID [facility] Last Admin: 08/01/19 09:46 Dose: 2 puff Enoxaparin Sodium (Lovenox -) 40 mg SQ DAILY [facility] Last Admin: 08/01/19 09:42 Dose: 40 mg Metformin HCl (Glucophage Xr -) 500 mg PO BIDAC [facility] Last Admin: 08/01/19 09:43 Dose: 500 mg Mirtazapine (Remeron -) 7.5 mg PO HS [facility] Last Admin: 07/31/19 21:25 Dose: 7.5 mg Nebivolol (Bystolic -) 10 mg PO DAILY [facility] Last Admin: 08/01/19 09:43 Dose: 10 mg Pantoprazole Sodium (Protonix -) 20 mg PO DAILY [facility] Last Admin: 08/01/19 09:46 Dose: 20 mg Prednisone (Deltasone -) 10 mg PO DAILY [facility] Last Admin: 08/01/19 09:43 Dose: 10 mg Spironolactone (Aldactone -) 25 mg PO DAILY [facility] Last Admin: 08/01/19 09:43 Dose: 25 mg - Objective Vital Signs: Vital Signs Temperature 97.8 F 08/01/19 06:00 Pulse Rate 87 08/01/19 06:00 Respiratory Rate 18 08/01/19 06:00 Blood Pressure 147/55 L 08/01/19 06:00 O2 Sat by Pulse Oximetry (%) 94 L 07/31/19 21:00 Constitutional: Yes: No Distress, Calm, Thin Neck: Yes: Supple Cardiovascular: Yes: Regular Rate and Rhythm Respiratory: Yes: Regular, CTA Bilaterally Gastrointestinal: Yes: Normal Bowel Sounds, Soft Edema: No Labs: CBC, BMP 07/29/19 09:39 07/31/19 06:00 - ....Imaging EKG: Report Reviewed (Tele: NSR) Problem List - Problems (1) S/P CABG (coronary artery bypass graft) Code(s): Z95.1 - PRESENCE OF AORTOCORONARY BYPASS GRAFT (2) Coronary artery disease Code(s): I25.10 - ATHSCL HEART DISEASE OF [place] CORONARY ARTERY W/O ANG PCTRS Qualifiers: Coronary Disease-Associated Artery/Lesion type: [place] artery [place] vs. transplanted heart: [place] heart Associated angina: without angina Qualified Code(s): I25.10 - Atherosclerotic heart disease of [place] coronary artery without angina pectoris (3) Diastolic dysfunction Code(s): I51.89 - OTHER ILL-DEFINED HEART DISEASES (4) COPD exacerbation Code(s): J44.1 - CHRONIC OBSTRUCTIVE PULMONARY DISEASE W (ACUTE) EXACERBATION (5) Carotid artery stenosis Code(s): I65.29 - OCCLUSION AND STENOSIS OF UNSPECIFIED CAROTID ARTERY Qualifiers: Laterality: bilateral Qualified Code(s): I65.23 - Occlusion and stenosis of bilateral carotid arteries (6) Hx of tuberculosis Code(s): Z86.11 - PERSONAL HISTORY OF TUBERCULOSIS (7) Hypertensive heart disease Code(s): I11.9 - HYPERTENSIVE HEART DISEASE WITHOUT HEART FAILURE Qualifiers: Heart failure presence: unspecified whether heart failure present Qualified Code(s): I11.9 - Hypertensive heart disease without heart failure (8) SOB (shortness of breath) Code(s): R06.02 - SHORTNESS OF BREATH (9) T2DM (type 2 diabetes mellitus) Code(s): E11.9 - TYPE 2 DIABETES MELLITUS WITHOUT COMPLICATIONS Qualifiers: Diabetes mellitus truck terminal manager insulin use: without truck terminal manager use Diabetes mellitus complication status: without complication Qualified Code(s): E11.9 - Type 2 diabetes mellitus without complications (10) Carotid stenosis, bilateral Code(s): I65.23 - OCCLUSION AND STENOSIS OF BILATERAL CAROTID ARTERIES Assessment/Plan 01/16/2019 No ischemia, normal LVEF 01/15/2019 Normal LV and RV size and fxn, mild MR 01/09/2019 Chest CTA: No PE, extensive bilateral upper lobe fibrotic changes and chronic inflammatory lower lobe changes, stable LLL pulm nodule, mild dilated main PA echo 10/30/18 EF 55% mod mr/tr mild pulm htn 1. AE COPD resolving 2. LV diastolic dysfunction resolving 3. CAD s/p CABG, angina pectoris 4. Hypertensive heart disease 5. Type 2 DM not at goal control Ha1c 8.1% 6. TB s/p rt upper lobectomy in s 7. Nonobstructive carotid stenosis P:1. BD, O2 as needed, oral steroid taper 2. Continue ASA 81 qd, Pravachol 40 qd, Norvasc 5 qd, Bystolic 10 qd, and Aldactone 25 qd 3. Ruled out for DE 4. May undergo stress testing as outpatient once pulmonary status stable 5. Patient may f/u with outpatient cardiology office if agreeable
[2019-08-01 10:50] VITALS: BP 130/60; PULSE 78; TEMP 98
--- NOTE | 2019-08-01 11:37 | DS ---
Physical Examination Vital Signs: Vital Signs Temperature 98 F 08/01/19 10:00 Pulse Rate 78 08/01/19 10:00 Respiratory Rate 18 08/01/19 10:00 Blood Pressure 130/60 08/01/19 10:00 O2 Sat by Pulse Oximetry (%) 94 L 07/31/19 21:00 Constitutional: Yes: Well Nourished, No Distress, Calm Eyes: Yes: EOM Intact Cardiovascular: Yes: Regular Rate and Rhythm Respiratory: Yes: Rhonchi (unlabored) Gastrointestinal: Yes: Normal Bowel Sounds, Soft Edema: No Neurological: Yes: WNL ...Motor Strength: WNL Psychiatric: Yes: WNL Labs: CBC, BMP 07/29/19 09:39 07/31/19 06:00 Discharge Summary Problems reviewed: Yes Reason For Visit: SOB Current Active Problems Carotid stenosis, bilateral (Acute) Chest pain in adult (Acute) Coronary artery disease (Acute) Diastolic dysfunction (Acute) Hyponatremia (Acute) S/P CABG (coronary artery bypass graft) (Acute) Unstable angina (Acute) DM lipidemia RLS Hypertension Hospital Course: admitted because of exertional chest tightness which she said developed in the past week [employer]LL[employer]; she denied any cough resting SOB, nasal congestion, dizziness, Lt arm pain. On admission her VSS and cardiac enzymes were WNL. The BNP was over 200. Her CXR showed no CHF. She was seen by cardiology who did not feel she had ACS and did not need any immediate interventions given that she had a stress test and echo recently. She was placed on steroids and diuretics and soon improved; as she no longer had BARRIOS or chest discomfort on exertion. Will f/ u as Op and determine what type of w/u will be done. Health Concerns: decomp COPD Plan of Treatment: make sure she is taking her meds as Rx'd Goals: maintain independence Condition: Improved - Instructions Diet, Activity, Other Instructions: rest; avoid exertion avoid salty foods or starchy foods Referrals: Chris Kc MD [Primary Care Provider] - Disposition: HOME - Home Medications Comprehensive Discharge Medication List: Ambulatory Orders Albuterol 2.5/Ipratropium 0.5 [Duoneb -] 1 amp NEB RTID amp 11/01/18 Aspirin [ASA -] 81 mg PO DAILY #30 tab.chew 11/01/18 Nateglinide [Starlix (Nf) -] 60 mg PO TID 12/28/18 Pravastatin Sodium [Pravachol -] 40 mg PO HS 12/28/18 Amlodipine Besylate [Norvasc -] 5 mg PO DAILY tablet 01/19/19 Azithromycin 750 mg PO WEEKLY 07/29/19 Budesonide/Formeterol Fumarate [SYMBICORT 160/4.5mcg -] 1 inh IH BID 07/29/19 Metformin HCl [Glucophage] 500 mg PO TID 07/29/19 Nebivolol HCl [Bystolic] 10 mg PO DAILY 07/29/19 Amlodipine Besylate [Norvasc -] 5 mg PO DAILY tablet 08/01/19 Mirtazapine [Remeron -] 7.5 mg PO HS #90 tablet 08/01/19 Spironolactone [Aldactone -] 25 mg PO DAILY #90 tablet 08/01/19 predniSONE [Deltasone -] 5 mg PO DAILY #30 tablet 08/01/19
== END 2019-08-01 12:39 | disposition home or self-care (01) | DRG 191 ==
LOC: JER 08:38 → JERBED 11:11 → J4W 17:25 → OBSVTOIN 07-30 15:17 → J4W 07-30 15:20
PROVIDERS: ADMIT Internal Medicine; ATTEND Internal Medicine
DX: J44.1 Chronic obstructive pulmonary disease with (acute) exacerbation (principal); E87.1 Hypo-osmolality and hyponatremia; E11.9 Type 2 diabetes mellitus without complications; I25.10 Atherosclerotic heart disease of native coronary artery without angina pectoris; E78.00 Pure hypercholesterolemia, unspecified; I65.23 Occlusion and stenosis of bilateral carotid arteries; G25.81 Restless legs syndrome; R93.89 Abnormal findings on diagnostic imaging of other specified body structures; Z91.09 Other allergy status, other than to drugs and biological substances; I11.9 Hypertensive heart disease without heart failure; J32.9 Chronic sinusitis, unspecified; M47.9 Spondylosis, unspecified; F41.9 Anxiety disorder, unspecified; Z86.11 Personal history of tuberculosis; Z90.2 Acquired absence of lung [part of]; Z95.1 Presence of aortocoronary bypass graft; Z87.891 Personal history of nicotine dependence; G47.00 Insomnia, unspecified
CPT/HCPCS: 36415; 71046-TC-FY; 80048; 80053; 80061; 82550; 82962; 83036; 83721; 83880; 84443; 84484; 85025; 93005; 93010; 94640; 94761; 99284-25; G0378

== ENCOUNTER 2021-03-16 18:54 | Emergency (ER) | payer OTHER, MEDICARE ==
[2021-03-16 19:09] VITALS: BP 142/107; PULSE 85; TEMP 98.7; BMI 22.6
[2021-03-16] MEDS ORDERED: ACETAMINOPHEN 325 MG TABLET (FP) PO ONE (20:15)
[2021-03-16] MEDS ORDERED: ACETAMINOPHEN 325 MG TABLET (FP) ONE (20:30)
[2021-03-16] MEDS ORDERED: IBUPROFEN 400 MG TABLET (FP) PO ONE ×2 (21:19→21:43)
== END 2021-03-16 22:54 | disposition home or self-care (01) ==
LOC: JER 18:54
DX: S42.494A Other nondisplaced fracture of lower end of right humerus, initial encounter for closed fracture (principal); W11.XXXA Fall on and from ladder, initial encounter
CPT/HCPCS: 73030-TC-RT-FY; 73070-TC-RT-FY; 73090-TC-RT-FY; 73590-TC-RT-FY; 99285-25

== ENCOUNTER 2021-04-10 14:21 | Inpatient (IN) | payer OTHER, MEDICARE ==
[2021-04-10] MEDS ORDERED: predniSONE 20 MG TABLET (UD) PO ONE (15:05)
[2021-04-10] MEDS ORDERED: AZITHROMYCIN IVPB 500 MG in DEXTROSE 5%-WATER - 250 ML IVPB ONE (15:05)
[2021-04-10] MEDS ORDERED: CEFTRIAXONE 1,000 MG in DEXTROSE 5%-WATER - 50 ML IVPB ONE (15:05)
[2021-04-10] MEDS ORDERED: ALBUTEROL SO4 2.5/IPRATROPIUM 0.5 INH SOL 3 ML VIAL.NEB. NEB ONE ×4 (15:09→22:34)
[2021-04-10 15:41] LABS: BASO % 1.3 % (0-2.0); EOS % 1.1 % (0-4.5); HEMATOCRIT 35.6 % (32.4-45.2); HEMOGLOBIN 11.7 GM/dL (10.7-15.3); MCH 28.1 pg (25.7-33.7); MCHC 32.8 g/dl (32.0-36.0); MEAN CELL VOLUME 85.7 fl (80-96); MEAN PLT VOLUME 7.6 fl (7.5-11.1); MONO % 7.4 % (3.8-10.2); NEUT % 69.2 % (42.8-82.8); PLATELET COUNT 425 10^3/uL (134-434); RBC 4.15 M/mm3 (3.60-5.2); RDW 16.8 % (11.6-15.6); WHITE BLOOD COUNT 9.4 K/mm3 (4.0-10.0)
[2021-04-10] MEDS ORDERED: CEFTRIAXONE 1 GM/50 ML BAG ONE (15:41)
[2021-04-10] MEDS ORDERED: predniSONE 20 MG TABLET (UD) ONE (15:41)
[2021-04-10 15:57] LABS: CALCIUM 8.8 mg/dL (8.5-10.1)
[2021-04-10] MEDS ORDERED: methylPREDNISolone NA SUCC 125 MG/2 ML VIAL ONE (15:57)
[2021-04-10 15:58] LABS: ALBUMIN 3.5 g/dl (3.4-5.0); BLOOD UREA NITROGEN 46.3 mg/dL (7-18)
[2021-04-10] MEDS ORDERED: methylPREDNISolone NA SUCC 125 MG/2 ML VIAL IVPUSH ONE (16:00)
[2021-04-10 16:01] LABS: CREATININE 1.5 mg/dL (0.55-1.3)
[2021-04-10 16:02] LABS: BILIRUBIN,TOTAL 0.5 mg/dL (0.2-1)
[2021-04-10 16:03] LABS: TOT PROT 7.3 g/dl (6.4-8.2)
[2021-04-10] MEDS ORDERED: AZITHROMYCIN IVPB 500 MG/250 ML BAG IVPB ONE (16:11)
[2021-04-10 16:26] LABS: VENOUS BASE EXCESS -1.6 mmol/L (-2-2); VENOUS O2 SATURATION 70.9 % (70-80); VENOUS PCO2 63.6 mmHg (38-52); VENOUS PH 7.243 (7.310-7.410)
[2021-04-10 17:14] LABS: EPI CELLS 23 /uL (0-25.1); HYALINE CASTS 2 /uL (0-3.1); URINE APPEARANCE CLEAR; URINE BACTERIA 180 /uL (0-1359); URINE BILIRUBIN NEGATIVE (NEGATIVE); URINE COLOR YELLOW; URINE GLUCOSE (UA) NEGATIVE (NEGATIVE); URINE KETONE NEGATIVE (NEGATIVE); URINE LEUK ESTERASE TRACE (NEGATIVE); URINE NITRITE NEGATIVE (NEGATIVE); URINE PROTEIN TRACE (NEGATIVE); URINE RBC 12 /uL (0-23.9); URINE UROBILINOGEN 0.2 mg/dL (0.2-1.0); URINE WBC 9 /uL (0-25.8)
[2021-04-10] MEDS ORDERED: BENZOCAINE/MENTH/CETYLPYRD CL 1 EACH LOZENGE MM PRN (17:19)
[2021-04-10] MEDS ORDERED: guaiFENesin 200 MG/10 ML 10 ML UNIT-DOSE CUPS PO ONE (17:43)
[2021-04-10] MEDS ORDERED: guaiFENesin/D-METHORPHAN HB 10 ML UNIT-DOSE CUPS ONE (18:04)
[2021-04-10 18:05] LABS: BLOOD UREA NITROGEN 45.2 mg/dL (7-18); CALCIUM 8.3 mg/dL (8.5-10.1)
[2021-04-10 18:08] LABS: CREATININE 1.3 mg/dL (0.55-1.3)
[2021-04-10] MEDS ORDERED: guaiFENesin 200 MG/10 ML 10 ML UNIT-DOSE CUPS ONE (18:08)
[2021-04-10] MEDS ORDERED: ALBUTEROL SO4 2.5/IPRATROPIUM 0.5 INH SOL 3 ML VIAL.NEB. NEB SCH (18:15)
[2021-04-10] MEDS ORDERED: SODIUM CHLORIDE 0.9% 500 ML INFUS.BAG IV ONE (20:11)
[2021-04-11] MEDS: methylPREDNISolone NA SUCC 40 MG/1 ML VIAL IVPB SCH ×3 (00:53→22:06)
[2021-04-11] MEDS: SODIUM CHLORIDE 0.45% 1,000 ML IV SCH ×2 (00:57→22:06)
[2021-04-11 08:18] LABS: HEMATOCRIT 33.5 % (32.4-45.2); HEMOGLOBIN 10.8 GM/dL (10.7-15.3); MCHC 32.3 g/dl (32.0-36.0); MEAN CELL VOLUME 86.8 fl (80-96); MEAN PLT VOLUME 7.6 fl (7.5-11.1); PLATELET COUNT 349 10^3/uL (134-434); RBC 3.86 M/mm3 (3.60-5.2); WHITE BLOOD COUNT 4.8 K/mm3 (4.0-10.0)
[2021-04-11 08:28] LABS: BLOOD UREA NITROGEN 43.2 mg/dL (7-18); CALCIUM 8.2 mg/dL (8.5-10.1)
[2021-04-11 08:30] LABS: CREATININE 1.3 mg/dL (0.55-1.3)
[2021-04-11] MEDS ORDERED: SODIUM POLYSTYRENE SULFONATE 15 GM/60 ML BOTTLE PO ONE (08:44)
[2021-04-11] MEDS ORDERED: cefTRIAXone SODIUM 1 GM VIAL ONE (09:45)
[2021-04-11] MEDS ORDERED: DEXTROSE 5%-WATER - 50 ML IVPB ONE (09:45)
[2021-04-11] MEDS ORDERED: SODIUM POLYSTYRENE SULFONATE 15 GM/60 ML BOTTLE ONE (09:55)
[2021-04-11] MEDS ORDERED: ENOXAPARIN NA (PORCINE) 40 MG/0.4 ML DISP.SYRIN SQ SCH (10:00)
[2021-04-11] MEDS: PANTOPRAZOLE 20 MG TABLET PO SCH (10:20)
[2021-04-11] MEDS: ENOXAPARIN NA (PORCINE) 30 MG/0.3 ML DISP.SYRIN SQ SCH (10:21)
[2021-04-11] MEDS: CEFTRIAXONE 1 GM in DEXTROSE 5%-WATER - 50 ML IVPB SCH (10:21)
[2021-04-11] MEDS: amLODIPine BESYLATE 2.5 MG TABLET (FP) PO SCH (10:21)
[2021-04-11] MEDS ORDERED: PT OWN MED DRAWER 7, Y5N ONE (10:43)
[2021-04-11] MEDS: AZITHROMYCIN 500 MG TABLET PO SCH (10:46)
[2021-04-11 11:34] LABS: ARTERIAL BLD GAS O2 SATURATION 97.1 % (95-98); ARTERIAL BLOOD GAS BASE EXCESS -2.7 mmol/L (-2-2); ARTERIAL BLOOD GAS PO2 108.1 mmHg (80-100); ARTERIAL BLOOD GAS pH 7.252 (7.350-7.450)
[2021-04-11 11:39] LABS: ALLENS TEST POSITIVE
[2021-04-11] MEDS ORDERED: INSULIN (NOVOLOG) ASPART 100 UNITS/ML 10ML VIAL ONE (12:20)
[2021-04-11] MEDS: INSULIN SLIDING SCALE (NOVOLOG) 1 VIAL SQ SCH ×2 (12:40→17:31)
[2021-04-11] MEDS ORDERED: ALBUTEROL SO4 0.083% IH SOL 2.5 MG/3 ML VIAL.NEB. NEB PRN (12:47)
[2021-04-11] MEDS: ALBUTEROL SO4 2.5/IPRATROPIUM 0.5 INH SOL 3 ML VIAL.NEB. NEB SCH ×2 (15:00→20:21)
[2021-04-11] MEDS: INSULIN (LEVEMIR) 100 UNITS/ML UNITS SQ SCH (22:05)
[2021-04-11] MEDS: rOPINIRole HCL 0.25 MG TABLET PO SCH (22:05)
[2021-04-12] MEDS: INSULIN SLIDING SCALE (NOVOLOG) 1 VIAL SQ SCH ×3 (06:22→16:17)
[2021-04-12] MEDS: ALBUTEROL SO4 2.5/IPRATROPIUM 0.5 INH SOL 3 ML VIAL.NEB. NEB SCH ×4 (07:21→20:10)
[2021-04-12 08:48] LABS: HEMATOCRIT 33.9 % (32.4-45.2); MCH 27.7 pg (25.7-33.7); MCHC 32.4 g/dl (32.0-36.0); MEAN CELL VOLUME 85.5 fl (80-96); PLATELET COUNT 358 10^3/uL (134-434); RBC 3.96 M/mm3 (3.60-5.2); RDW 16.7 % (11.6-15.6); WHITE BLOOD COUNT 15.3 K/mm3 (4.0-10.0)
[2021-04-12 09:12] LABS: BLOOD UREA NITROGEN 46.7 mg/dL (7-18)
[2021-04-12 09:15] LABS: ALBUMIN 3.5 g/dl (3.4-5.0); CALCIUM 8.2 mg/dL (8.5-10.1); CREATININE 1.4 mg/dL (0.55-1.3)
[2021-04-12 09:16] LABS: BILIRUBIN,TOTAL 0.3 mg/dL (0.2-1); TOT PROT 7.1 g/dl (6.4-8.2)
[2021-04-12] MEDS ORDERED: cefTRIAXone SODIUM 1 GM VIAL ONE (09:20)
[2021-04-12] MEDS ORDERED: DEXTROSE 5%-WATER - 50 ML IVPB ONE (09:20)
[2021-04-12] MEDS ORDERED: PT OWN MED DRAWER 7, Y5N ONE ×2 (09:21→20:48)
[2021-04-12] MEDS: amLODIPine BESYLATE 2.5 MG TABLET (FP) PO SCH (09:28)
[2021-04-12] MEDS: CEFTRIAXONE 1 GM in DEXTROSE 5%-WATER - 50 ML IVPB SCH (09:29)
[2021-04-12] MEDS: ENOXAPARIN NA (PORCINE) 30 MG/0.3 ML DISP.SYRIN SQ SCH (09:29)
[2021-04-12] MEDS: PANTOPRAZOLE 20 MG TABLET PO SCH (09:29)
[2021-04-12] MEDS: AZITHROMYCIN 500 MG TABLET PO SCH (09:30)
[2021-04-12] MEDS: methylPREDNISolone NA SUCC 40 MG/1 ML VIAL IVPB SCH ×2 (11:23→22:14)
[2021-04-12 13:08] LABS: ANISOCYTOSIS 2+; MACROCYTOSIS 0; OVALOCYTE 1+; PLATELET ESTIMATE NORMAL; TARGET CELLS 1+; TEAR DROP CELLS 1+
[2021-04-12] MEDS: MIRTAZAPINE 15 MG TABLET (FP) PO SCH (21:13)
[2021-04-12] MEDS: rOPINIRole HCL 0.25 MG TABLET PO SCH (21:14)
[2021-04-12] MEDS: INSULIN (LEVEMIR) 100 UNITS/ML UNITS SQ SCH (21:18)
[2021-04-12] MEDS ORDERED: INSULIN (LEVEMIR) 100 UNITS/ML UNITS SQ ONE (21:27)
[2021-04-12] MEDS: SODIUM CHLORIDE 0.45% 1,000 ML IV SCH (22:14)
[2021-04-12] MEDS ORDERED: ACETAMINOPHEN 500 MG TABLET (FP) PO ONE (22:15)
[2021-04-13] MEDS: INSULIN SLIDING SCALE (NOVOLOG) 1 VIAL SQ SCH ×3 (06:28→17:25)
[2021-04-13] MEDS: ALBUTEROL SO4 2.5/IPRATROPIUM 0.5 INH SOL 3 ML VIAL.NEB. NEB SCH ×4 (08:05→20:10)
[2021-04-13] MEDS ORDERED: cefTRIAXone SODIUM 1 GM VIAL ONE (08:56)
[2021-04-13] MEDS ORDERED: DEXTROSE 5%-WATER - 50 ML IVPB ONE (08:57)
[2021-04-13 09:11] LABS: HEMATOCRIT 35.9 % (32.4-45.2); HEMOGLOBIN 11.4 GM/dL (10.7-15.3); MCH 27.4 pg (25.7-33.7); MCHC 31.8 g/dl (32.0-36.0); MEAN CELL VOLUME 86.3 fl (80-96); MEAN PLT VOLUME 8.3 fl (7.5-11.1); PLATELET COUNT 379 10^3/uL (134-434); RBC 4.16 M/mm3 (3.60-5.2); RDW 16.8 % (11.6-15.6); WHITE BLOOD COUNT 11.5 K/mm3 (4.0-10.0)
[2021-04-13 09:21] LABS: CALCIUM 7.9 mg/dL (8.5-10.1)
[2021-04-13 09:22] LABS: BLOOD UREA NITROGEN 42.5 mg/dL (7-18)
[2021-04-13] MEDS: ENOXAPARIN NA (PORCINE) 30 MG/0.3 ML DISP.SYRIN SQ SCH (10:09)
[2021-04-13] MEDS: amLODIPine BESYLATE 2.5 MG TABLET (FP) PO SCH (10:09)
[2021-04-13] MEDS: methylPREDNISolone NA SUCC 40 MG/1 ML VIAL IVPB SCH ×2 (10:09→22:07)
[2021-04-13] MEDS: PANTOPRAZOLE 20 MG TABLET PO SCH (10:09)
[2021-04-13] MEDS: CEFTRIAXONE 1 GM in DEXTROSE 5%-WATER - 50 ML IVPB SCH (10:09)
[2021-04-13] MEDS: AZITHROMYCIN 500 MG TABLET PO SCH (10:10)
[2021-04-13] MEDS ORDERED: PT OWN MED DRAWER 7, Y5N ONE (10:12)
[2021-04-13] MEDS ORDERED: INSULIN (NOVOLOG) ASPART 100 UNITS/ML 10ML VIAL ONE ×2 (12:26→17:14)
[2021-04-13] MEDS ORDERED: SODIUM POLYSTYRENE SULFONATE 15 GM/60 ML BOTTLE PO ONE (13:30)
[2021-04-13] MEDS: rOPINIRole HCL 0.25 MG TABLET PO SCH (21:16)
[2021-04-13] MEDS: guaiFENesin 600 MG TABLET.ER (FP) PO SCH (21:16)
[2021-04-13] MEDS: MIRTAZAPINE 15 MG TABLET (FP) PO SCH (21:16)
[2021-04-13] MEDS: INSULIN (LEVEMIR) 100 UNITS/ML UNITS SQ SCH (21:18)
[2021-04-14] MEDS: INSULIN SLIDING SCALE (NOVOLOG) 1 VIAL SQ SCH ×3 (06:22→18:17)
[2021-04-14 07:44] LABS: CALCIUM 7.6 mg/dL (8.5-10.1)
[2021-04-14 07:45] LABS: ALBUMIN 3.3 g/dl (3.4-5.0); BLOOD UREA NITROGEN 31.9 mg/dL (7-18)
[2021-04-14 07:49] LABS: BILIRUBIN,TOTAL 0.3 mg/dL (0.2-1); TOT PROT 6.4 g/dl (6.4-8.2)
[2021-04-14] MEDS: ALBUTEROL SO4 2.5/IPRATROPIUM 0.5 INH SOL 3 ML VIAL.NEB. NEB SCH ×4 (08:15→20:10)
[2021-04-14] MEDS ORDERED: cefTRIAXone SODIUM 1 GM VIAL ONE (08:49)
[2021-04-14] MEDS ORDERED: DEXTROSE 5%-WATER - 50 ML IVPB ONE (08:49)
[2021-04-14] MEDS: amLODIPine BESYLATE 2.5 MG TABLET (FP) PO SCH (11:03)
[2021-04-14] MEDS: ENOXAPARIN NA (PORCINE) 30 MG/0.3 ML DISP.SYRIN SQ SCH (11:03)
[2021-04-14] MEDS: CEFTRIAXONE 1 GM in DEXTROSE 5%-WATER - 50 ML IVPB SCH (11:03)
[2021-04-14] MEDS: guaiFENesin 600 MG TABLET.ER (FP) PO SCH ×2 (11:03→21:29)
[2021-04-14] MEDS: PANTOPRAZOLE 20 MG TABLET PO SCH (11:03)
[2021-04-14] MEDS: NEBIVOLOL 2.5 MG TABLET (FP) PO SCH (11:03)
[2021-04-14] MEDS: methylPREDNISolone NA SUCC 40 MG/1 ML VIAL IVPB SCH (11:03)
[2021-04-14] MEDS ORDERED: PT OWN MED DRAWER 7, Y5N ONE (21:15)
[2021-04-14] MEDS: rOPINIRole HCL 0.25 MG TABLET PO SCH (21:29)
[2021-04-14] MEDS: INSULIN (LEVEMIR) 100 UNITS/ML UNITS SQ SCH (21:29)
[2021-04-14] MEDS: MIRTAZAPINE 15 MG TABLET (FP) PO SCH (21:30)
[2021-04-15] MEDS: INSULIN SLIDING SCALE (NOVOLOG) 1 VIAL SQ SCH ×3 (06:26→18:30)
[2021-04-15] MEDS: ALBUTEROL SO4 2.5/IPRATROPIUM 0.5 INH SOL 3 ML VIAL.NEB. NEB SCH ×4 (07:25→20:10)
[2021-04-15 08:23] LABS: BASO % 0.2 % (0-2.0); EOS % 0.1 % (0-4.5); HEMATOCRIT 36.5 % (32.4-45.2); HEMOGLOBIN 11.4 GM/dL (10.7-15.3); LYMPH % 15.9 % (8-40); MCHC 31.3 g/dl (32.0-36.0); MEAN CELL VOLUME 86.5 fl (80-96); MEAN PLT VOLUME 8.1 fl (7.5-11.1); MONO % 9.8 % (3.8-10.2); PLATELET COUNT 348 10^3/uL (134-434); RBC 4.22 M/mm3 (3.60-5.2); RDW 16.7 % (11.6-15.6); WHITE BLOOD COUNT 13.2 K/mm3 (4.0-10.0)
[2021-04-15 08:44] LABS: ALBUMIN 3.7 g/dl (3.4-5.0); BLOOD UREA NITROGEN 31.8 mg/dL (7-18); CALCIUM 8.6 mg/dL (8.5-10.1)
[2021-04-15 08:49] LABS: BILIRUBIN,TOTAL 0.4 mg/dL (0.2-1); TOT PROT 6.9 g/dl (6.4-8.2)
[2021-04-15] MEDS: guaiFENesin 600 MG TABLET.ER (FP) PO SCH ×2 (11:08→21:46)
[2021-04-15] MEDS: PANTOPRAZOLE 20 MG TABLET PO SCH (11:08)
[2021-04-15] MEDS: ASPIRIN 81 MG CHEWABLE TABLETS PO SCH (11:08)
[2021-04-15] MEDS: LOSARTAN POTASSIUM 25 MG TABLET PO SCH (11:08)
[2021-04-15] MEDS: NEBIVOLOL 2.5 MG TABLET (FP) PO SCH (11:08)
[2021-04-15] MEDS: amLODIPine BESYLATE 2.5 MG TABLET (FP) PO SCH (11:08)
[2021-04-15] MEDS: ENOXAPARIN NA (PORCINE) 30 MG/0.3 ML DISP.SYRIN SQ SCH (11:09)
[2021-04-15] MEDS: methylPREDNISolone NA SUCC 40 MG/1 ML VIAL IVPB SCH (11:09)
[2021-04-15] MEDS ORDERED: DEXTROSE 5%-WATER - 50 ML IVPB ONE (11:10)
[2021-04-15] MEDS ORDERED: cefTRIAXone SODIUM 1 GM VIAL ONE (11:10)
[2021-04-15] MEDS: CEFTRIAXONE 1 GM in DEXTROSE 5%-WATER - 50 ML IVPB SCH (11:13)
[2021-04-15] MEDS ORDERED: NEBIVOLOL 2.5 MG TABLET (FP) PO SCH (14:39)
[2021-04-15] MEDS: amLODIPine BESYLATE 5 MG TABLET (FP) PO SCH (15:34)
[2021-04-15] MEDS ORDERED: PT OWN MED DRAWER 7, Y5N ONE (21:23)
[2021-04-15] MEDS: INSULIN (LEVEMIR) 100 UNITS/ML UNITS SQ SCH (21:44)
[2021-04-15] MEDS: rOPINIRole HCL 0.25 MG TABLET PO SCH (21:46)
[2021-04-15] MEDS: MIRTAZAPINE 15 MG TABLET (FP) PO SCH (21:46)
[2021-04-16] MEDS: INSULIN SLIDING SCALE (NOVOLOG) 1 VIAL SQ SCH ×3 (06:44→17:39)
[2021-04-16 08:10] LABS: HEMATOCRIT 36.3 % (32.4-45.2); HEMOGLOBIN 11.6 GM/dL (10.7-15.3); MCH 27.5 pg (25.7-33.7); MEAN CELL VOLUME 85.8 fl (80-96); MEAN PLT VOLUME 8.1 fl (7.5-11.1); PLATELET COUNT 293 10^3/uL (134-434); RBC 4.24 M/mm3 (3.60-5.2); RDW 16.2 % (11.6-15.6); WHITE BLOOD COUNT 9.7 K/mm3 (4.0-10.0)
[2021-04-16 08:35] LABS: ALBUMIN 3.5 g/dl (3.4-5.0); CALCIUM 8.3 mg/dL (8.5-10.1)
[2021-04-16 08:36] LABS: BLOOD UREA NITROGEN 25.5 mg/dL (7-18); MAGNESIUM 2.4 mg/dL (1.8-2.4)
[2021-04-16] MEDS: ALBUTEROL SO4 2.5/IPRATROPIUM 0.5 INH SOL 3 ML VIAL.NEB. NEB SCH ×4 (08:37→20:35)
[2021-04-16 08:39] LABS: CREATININE 0.9 mg/dL (0.55-1.3)
[2021-04-16 08:40] LABS: BILIRUBIN,TOTAL 0.6 mg/dL (0.2-1); TOT PROT 6.6 g/dl (6.4-8.2)
[2021-04-16] MEDS ORDERED: cefTRIAXone SODIUM 1 GM VIAL ONE (09:02)
[2021-04-16] MEDS ORDERED: DEXTROSE 5%-WATER - 50 ML IVPB ONE (09:03)
[2021-04-16] MEDS: guaiFENesin 600 MG TABLET.ER (FP) PO SCH ×2 (09:53→23:24)
[2021-04-16] MEDS: ENOXAPARIN NA (PORCINE) 30 MG/0.3 ML DISP.SYRIN SQ SCH (09:53)
[2021-04-16] MEDS: CEFTRIAXONE 1 GM in DEXTROSE 5%-WATER - 50 ML IVPB SCH (09:54)
[2021-04-16] MEDS: ASPIRIN 81 MG CHEWABLE TABLETS PO SCH (09:54)
[2021-04-16] MEDS: LOSARTAN POTASSIUM 25 MG TABLET PO SCH (09:54)
[2021-04-16] MEDS: amLODIPine BESYLATE 5 MG TABLET (FP) PO SCH (09:54)
[2021-04-16] MEDS: PANTOPRAZOLE 20 MG TABLET PO SCH (09:54)
[2021-04-16] MEDS: methylPREDNISolone NA SUCC 40 MG/1 ML VIAL IVPB SCH (09:55)
[2021-04-16] MEDS ORDERED: PT OWN MED DRAWER 7, Y5N ONE (22:37)
[2021-04-16] MEDS: rOPINIRole HCL 0.25 MG TABLET PO SCH (23:23)
[2021-04-16] MEDS: MIRTAZAPINE 15 MG TABLET (FP) PO SCH (23:23)
[2021-04-16] MEDS: INSULIN (LEVEMIR) 100 UNITS/ML UNITS SQ SCH (23:24)
[2021-04-17] MEDS: INSULIN SLIDING SCALE (NOVOLOG) 1 VIAL SQ SCH ×3 (06:21→16:59)
[2021-04-17] MEDS: ALBUTEROL SO4 2.5/IPRATROPIUM 0.5 INH SOL 3 ML VIAL.NEB. NEB SCH ×3 (08:11→16:12)
[2021-04-17] MEDS ORDERED: DEXTROSE 5%-WATER - 50 ML IVPB ONE (08:49)
[2021-04-17] MEDS ORDERED: cefTRIAXone SODIUM 1 GM VIAL ONE (08:49)
[2021-04-17] MEDS: ASPIRIN 81 MG CHEWABLE TABLETS PO SCH (09:26)
[2021-04-17] MEDS: LOSARTAN POTASSIUM 50 MG TABLET PO SCH (09:26)
[2021-04-17] MEDS: NEBIVOLOL 10 MG TABLET (FP) PO SCH (09:26)
[2021-04-17] MEDS: PANTOPRAZOLE 20 MG TABLET PO SCH (09:27)
[2021-04-17] MEDS: guaiFENesin 600 MG TABLET.ER (FP) PO SCH ×2 (09:27→23:33)
[2021-04-17] MEDS: amLODIPine BESYLATE 5 MG TABLET (FP) PO SCH (09:27)
[2021-04-17] MEDS: ENOXAPARIN NA (PORCINE) 30 MG/0.3 ML DISP.SYRIN SQ SCH (09:27)
[2021-04-17] MEDS: ESCITALOPRAM OXALATE 10 MG TABLET PO SCH (09:27)
[2021-04-17] MEDS: CEFTRIAXONE 1 GM in DEXTROSE 5%-WATER - 50 ML IVPB SCH (09:28)
[2021-04-17] MEDS: methylPREDNISolone NA SUCC 40 MG/1 ML VIAL IVPB SCH (09:28)
[2021-04-17 09:30] LABS: BLOOD UREA NITROGEN 33.6 mg/dL (7-18); CALCIUM 8.6 mg/dL (8.5-10.1)
[2021-04-17] MEDS ORDERED: CHLORTHALIDONE 25 MG TABLET PO ONE (14:30)
[2021-04-17] MEDS ORDERED: PT OWN MED DRAWER 7, Y5N ONE (16:19)
[2021-04-17] MEDS: INSULIN (LEVEMIR) 100 UNITS/ML UNITS SQ SCH (23:33)
[2021-04-17] MEDS: rOPINIRole HCL 0.25 MG TABLET PO SCH (23:33)
[2021-04-18] MEDS: INSULIN SLIDING SCALE (NOVOLOG) 1 VIAL SQ SCH ×3 (06:40→16:53)
[2021-04-18] MEDS: ALBUTEROL SO4 2.5/IPRATROPIUM 0.5 INH SOL 3 ML VIAL.NEB. NEB SCH ×4 (07:44→20:54)
[2021-04-18] MEDS ORDERED: cefTRIAXone SODIUM 1 GM VIAL ONE (08:38)
[2021-04-18] MEDS ORDERED: DEXTROSE 5%-WATER - 50 ML IVPB ONE (08:38)
[2021-04-18] MEDS: methylPREDNISolone NA SUCC 40 MG/1 ML VIAL IVPB SCH (09:19)
[2021-04-18] MEDS: CEFTRIAXONE 1 GM in DEXTROSE 5%-WATER - 50 ML IVPB SCH (09:20)
[2021-04-18 09:23] LABS: CALCIUM 8.5 mg/dL (8.5-10.1)
[2021-04-18] MEDS: PANTOPRAZOLE 20 MG TABLET PO SCH (09:24)
[2021-04-18] MEDS: LOSARTAN POTASSIUM 50 MG TABLET PO SCH (09:24)
[2021-04-18] MEDS: ASPIRIN 81 MG CHEWABLE TABLETS PO SCH (09:24)
[2021-04-18] MEDS: ESCITALOPRAM OXALATE 10 MG TABLET PO SCH (09:25)
[2021-04-18 09:26] LABS: BLOOD UREA NITROGEN 34.8 mg/dL (7-18); CREATININE 0.9 mg/dL (0.55-1.3)
[2021-04-18] MEDS: amLODIPine BESYLATE 5 MG TABLET (FP) PO SCH (09:26)
[2021-04-18] MEDS: guaiFENesin 600 MG TABLET.ER (FP) PO SCH ×2 (09:26→21:41)
[2021-04-18] MEDS: ENOXAPARIN NA (PORCINE) 30 MG/0.3 ML DISP.SYRIN SQ SCH (09:26)
[2021-04-18] MEDS: NEBIVOLOL 10 MG TABLET (FP) PO SCH (09:26)
[2021-04-18] MEDS ORDERED: PT OWN MED DRAWER 7, Y5N ONE (21:09)
[2021-04-18] MEDS: rOPINIRole HCL 0.25 MG TABLET PO SCH (21:41)
[2021-04-18] MEDS: INSULIN (LEVEMIR) 100 UNITS/ML UNITS SQ SCH (21:41)
[2021-04-19] MEDS: INSULIN SLIDING SCALE (NOVOLOG) 1 VIAL SQ SCH ×3 (06:11→16:37)
[2021-04-19] MEDS ORDERED: DEXTROSE 5%-WATER - 50 ML IVPB ONE (09:07)
[2021-04-19] MEDS ORDERED: cefTRIAXone SODIUM 1 GM VIAL ONE (09:07)
[2021-04-19] MEDS: PANTOPRAZOLE 20 MG TABLET PO SCH (09:28)
[2021-04-19] MEDS: LOSARTAN POTASSIUM 50 MG TABLET PO SCH (09:28)
[2021-04-19] MEDS: ESCITALOPRAM OXALATE 10 MG TABLET PO SCH (09:28)
[2021-04-19] MEDS: guaiFENesin 600 MG TABLET.ER (FP) PO SCH ×2 (09:28→21:42)
[2021-04-19] MEDS: amLODIPine BESYLATE 5 MG TABLET (FP) PO SCH (09:28)
[2021-04-19] MEDS: ASPIRIN 81 MG CHEWABLE TABLETS PO SCH (09:28)
[2021-04-19] MEDS: ENOXAPARIN NA (PORCINE) 30 MG/0.3 ML DISP.SYRIN SQ SCH (09:29)
[2021-04-19] MEDS: CEFTRIAXONE 1 GM in DEXTROSE 5%-WATER - 50 ML IVPB SCH (09:29)
[2021-04-19] MEDS: methylPREDNISolone NA SUCC 40 MG/1 ML VIAL IVPB SCH (09:29)
[2021-04-19] MEDS: NEBIVOLOL 10 MG TABLET (FP) PO SCH (09:30)
[2021-04-19] MEDS: ALBUTEROL SO4 2.5/IPRATROPIUM 0.5 INH SOL 3 ML VIAL.NEB. NEB SCH (20:00)
[2021-04-19] MEDS: INSULIN (LEVEMIR) 100 UNITS/ML UNITS SQ SCH (21:43)
[2021-04-20] MEDS: INSULIN SLIDING SCALE (NOVOLOG) 1 VIAL SQ SCH ×3 (06:07→17:31)
[2021-04-20] MEDS: ALBUTEROL SO4 2.5/IPRATROPIUM 0.5 INH SOL 3 ML VIAL.NEB. NEB SCH ×4 (07:00→19:45)
[2021-04-20 08:10] LABS: HEMATOCRIT 35.8 % (32.4-45.2); HEMOGLOBIN 11.2 GM/dL (10.7-15.3); MCH 27.1 pg (25.7-33.7); MCHC 31.3 g/dl (32.0-36.0); MEAN CELL VOLUME 86.7 fl (80-96); MEAN PLT VOLUME 8.8 fl (7.5-11.1); PLATELET COUNT 270 10^3/uL (134-434); RBC 4.13 M/mm3 (3.60-5.2); RDW 16.3 % (11.6-15.6); WHITE BLOOD COUNT 15.7 K/mm3 (4.0-10.0)
[2021-04-20 08:16] LABS: CALCIUM 8.9 mg/dL (8.5-10.1)
[2021-04-20 08:17] LABS: ALBUMIN 2.9 g/dl (3.4-5.0); BLOOD UREA NITROGEN 39.1 mg/dL (7-18); MAGNESIUM 1.9 mg/dL (1.8-2.4)
[2021-04-20 08:20] LABS: CREATININE 0.7 mg/dL (0.55-1.3)
[2021-04-20 08:21] LABS: BILIRUBIN,TOTAL 0.6 mg/dL (0.2-1); TOT PROT 5.8 g/dl (6.4-8.2)
[2021-04-20] MEDS ORDERED: cefTRIAXone SODIUM 1 GM VIAL ONE (08:54)
[2021-04-20] MEDS ORDERED: DEXTROSE 5%-WATER - 50 ML IVPB ONE (08:54)
[2021-04-20] MEDS: CEFTRIAXONE 1 GM in DEXTROSE 5%-WATER - 50 ML IVPB SCH (09:01)
[2021-04-20] MEDS: amLODIPine BESYLATE 5 MG TABLET (FP) PO SCH (09:03)
[2021-04-20] MEDS: ASPIRIN 81 MG CHEWABLE TABLETS PO SCH (09:03)
[2021-04-20] MEDS: guaiFENesin 600 MG TABLET.ER (FP) PO SCH ×2 (09:03→21:26)
[2021-04-20] MEDS: ENOXAPARIN NA (PORCINE) 30 MG/0.3 ML DISP.SYRIN SQ SCH (09:03)
[2021-04-20] MEDS: predniSONE 20 MG TABLET (UD) PO SCH ×2 (09:03→21:26)
[2021-04-20] MEDS: PANTOPRAZOLE 20 MG TABLET PO SCH (09:03)
[2021-04-20] MEDS: LOSARTAN POTASSIUM 50 MG TABLET PO SCH (09:04)
[2021-04-20] MEDS: NEBIVOLOL 10 MG TABLET (FP) PO SCH (10:21)
[2021-04-20] MEDS ORDERED: FUROSEMIDE 40 MG/4 ML INJECTABLE VIAL IVPUSH ONE (13:21)
[2021-04-20] MEDS: BUDESONIDE 0.25 MG/2ML INH SUSP VIAL NEB SCH (19:59)
[2021-04-20] MEDS: INSULIN (LEVEMIR) 100 UNITS/ML UNITS SQ SCH (21:27)
[2021-04-21] MEDS: INSULIN SLIDING SCALE (NOVOLOG) 1 VIAL SQ SCH ×3 (06:05→17:21)
[2021-04-21] MEDS: BUDESONIDE 0.25 MG/2ML INH SUSP VIAL NEB SCH ×2 (08:15→20:34)
[2021-04-21] MEDS: ALBUTEROL SO4 2.5/IPRATROPIUM 0.5 INH SOL 3 ML VIAL.NEB. NEB SCH ×4 (08:15→20:33)
[2021-04-21] MEDS ORDERED: cefTRIAXone SODIUM 1 GM VIAL ONE (08:37)
[2021-04-21] MEDS ORDERED: DEXTROSE 5%-WATER - 50 ML IVPB ONE (08:38)
[2021-04-21] MEDS: CEFTRIAXONE 1 GM in DEXTROSE 5%-WATER - 50 ML IVPB SCH (09:05)
[2021-04-21] MEDS: NEBIVOLOL 10 MG TABLET (FP) PO SCH (09:06)
[2021-04-21] MEDS: LOSARTAN POTASSIUM 50 MG TABLET PO SCH (09:06)
[2021-04-21] MEDS: ASPIRIN 81 MG CHEWABLE TABLETS PO SCH (09:06)
[2021-04-21] MEDS: PANTOPRAZOLE 20 MG TABLET PO SCH (09:06)
[2021-04-21] MEDS: amLODIPine BESYLATE 5 MG TABLET (FP) PO SCH (09:06)
[2021-04-21] MEDS: guaiFENesin 600 MG TABLET.ER (FP) PO SCH ×2 (09:06→21:00)
[2021-04-21] MEDS: predniSONE 20 MG TABLET (UD) PO SCH (09:06)
[2021-04-21] MEDS: ENOXAPARIN NA (PORCINE) 30 MG/0.3 ML DISP.SYRIN SQ SCH (09:07)
[2021-04-21] MEDS ORDERED: FUROSEMIDE 40 MG/4 ML INJECTABLE VIAL IVPUSH ONE (10:19)
[2021-04-21] MEDS: INSULIN (LEVEMIR) 100 UNITS/ML UNITS SQ SCH (21:00)
[2021-04-22] MEDS: INSULIN SLIDING SCALE (NOVOLOG) 1 VIAL SQ SCH ×3 (06:01→16:28)
[2021-04-22] MEDS: ALBUTEROL SO4 2.5/IPRATROPIUM 0.5 INH SOL 3 ML VIAL.NEB. NEB SCH ×4 (07:32→19:50)
[2021-04-22] MEDS: BUDESONIDE 0.25 MG/2ML INH SUSP VIAL NEB SCH ×2 (07:32→21:10)
[2021-04-22 09:06] LABS: HEMATOCRIT 34.9 % (32.4-45.2); HEMOGLOBIN 11.1 GM/dL (10.7-15.3); MCH 27.1 pg (25.7-33.7); MCHC 31.8 g/dl (32.0-36.0); MEAN CELL VOLUME 85.3 fl (80-96); MEAN PLT VOLUME 9.1 fl (7.5-11.1); PLATELET COUNT 211 10^3/uL (134-434); RBC 4.08 M/mm3 (3.60-5.2); RDW 16.1 % (11.6-15.6); WHITE BLOOD COUNT 12.5 K/mm3 (4.0-10.0)
[2021-04-22 09:22] LABS: CALCIUM 8.4 mg/dL (8.5-10.1); CHLORIDE 86 mmol/L (98-107); SODIUM 137 mmol/L (136-145)
[2021-04-22 09:23] LABS: BLOOD UREA NITROGEN 23.8 mg/dL (7-18); GLUCOSE,RANDOM 141 mg/dL (74-106)
[2021-04-22] MEDS ORDERED: PT OWN MED DRAWER 7, Y5N ONE (09:24)
[2021-04-22 09:27] LABS: CREATININE 0.6 mg/dL (0.55-1.3)
[2021-04-22 09:30] LABS: ANION GAP 6 MMOL/L (8-16); CO2 > 45 mmol/L (21-32)
[2021-04-22] MEDS: LOSARTAN POTASSIUM 50 MG TABLET PO SCH (09:53)
[2021-04-22] MEDS: NEBIVOLOL 10 MG TABLET (FP) PO SCH (09:53)
[2021-04-22] MEDS: ASPIRIN 81 MG CHEWABLE TABLETS PO SCH (09:53)
[2021-04-22] MEDS: predniSONE 20 MG TABLET (UD) PO SCH (09:54)
[2021-04-22] MEDS: amLODIPine BESYLATE 5 MG TABLET (FP) PO SCH (09:54)
[2021-04-22] MEDS: guaiFENesin 600 MG TABLET.ER (FP) PO SCH ×2 (09:54→21:56)
[2021-04-22] MEDS: ENOXAPARIN NA (PORCINE) 30 MG/0.3 ML DISP.SYRIN SQ SCH (09:55)
[2021-04-22] MEDS: PANTOPRAZOLE 20 MG TABLET PO SCH (09:55)
[2021-04-22] MEDS ORDERED: INSULIN (NOVOLOG) ASPART 100 UNITS/ML 10ML VIAL ONE (11:09)
[2021-04-22] MEDS: FUROSEMIDE 40 MG/4 ML INJECTABLE VIAL IVPUSH SCH (12:46)
[2021-04-22] MEDS ORDERED: BENZOCAINE/MENTH/CETYLPYRD CL 1 EACH LOZENGE MM PRN (15:32)
[2021-04-22] MEDS ORDERED: ALBUTEROL SO4 0.083% IH SOL 2.5 MG/3 ML VIAL.NEB. NEB PRN (15:32)
[2021-04-22] MEDS ORDERED: BUDESONIDE 0.5 MG/2 ML INH SUSP VIAL NEB ONE (19:45)
[2021-04-22] MEDS: INSULIN (LEVEMIR) 100 UNITS/ML UNITS SQ SCH (22:01)
[2021-04-23] MEDS: INSULIN SLIDING SCALE (NOVOLOG) 1 VIAL SQ SCH ×3 (06:05→16:45)
[2021-04-23] MEDS ORDERED: PT OWN MED DRAWER 7, Y5N ONE ×3 (07:38→19:52)
[2021-04-23] MEDS: ALBUTEROL SO4 2.5/IPRATROPIUM 0.5 INH SOL 3 ML VIAL.NEB. NEB SCH ×4 (07:40→20:15)
[2021-04-23] MEDS: BUDESONIDE 0.25 MG/2ML INH SUSP VIAL NEB SCH ×2 (07:40→20:05)
[2021-04-23] MEDS ORDERED: LOSARTAN POTASSIUM 50 MG TABLET PO SCH (10:00)
[2021-04-23] MEDS: ENOXAPARIN NA (PORCINE) 40 MG/0.4 ML DISP.SYRIN SQ SCH (11:13)
[2021-04-23] MEDS: amLODIPine BESYLATE 5 MG TABLET (FP) PO SCH (11:14)
[2021-04-23] MEDS: guaiFENesin 600 MG TABLET.ER (FP) PO SCH ×2 (11:14→21:28)
[2021-04-23] MEDS: ASPIRIN 81 MG CHEWABLE TABLETS PO SCH (11:18)
[2021-04-23] MEDS: PANTOPRAZOLE 20 MG TABLET PO SCH (11:18)
[2021-04-23] MEDS: predniSONE 20 MG TABLET (UD) PO SCH (11:19)
[2021-04-23] MEDS: FUROSEMIDE 40 MG/4 ML INJECTABLE VIAL IVPUSH SCH (11:20)
[2021-04-23] MEDS: NEBIVOLOL 10 MG TABLET (FP) PO SCH (11:32)
[2021-04-23 15:17] LABS: PH,URINE 8.5 (5.0-8.0); URINE APPEARANCE CLEAR; URINE BILIRUBIN NEGATIVE (NEGATIVE); URINE COLOR YELLOW; URINE GLUCOSE (UA) TRACE (NEGATIVE); URINE KETONE NEGATIVE (NEGATIVE); URINE LEUK ESTERASE NEGATIVE (NEGATIVE); URINE NITRITE NEGATIVE (NEGATIVE); URINE PROTEIN NEGATIVE (NEGATIVE); URINE UROBILINOGEN 0.2 mg/dL (0.2-1.0)
[2021-04-23 16:23] LABS: CHLORIDE 77 mmol/L (98-107); SODIUM 130 mmol/L (136-145)
[2021-04-23 16:24] LABS: BLOOD UREA NITROGEN 22.9 mg/dL (7-18); CALCIUM 8.4 mg/dL (8.5-10.1); GLUCOSE,RANDOM 321 mg/dL (74-106); MAGNESIUM 1.6 mg/dL (1.8-2.4)
[2021-04-23 16:28] LABS: CREATININE 0.8 mg/dL (0.55-1.3)
[2021-04-23 16:34] LABS: ANION GAP 8 MMOL/L (8-16); CO2 > 45 mmol/L (21-32)
[2021-04-23] MEDS ORDERED: MAGNESIUM SULF 50% (8.12 MEQ/2 ML-1 GM VIAL) IVPB ONE (20:06)
[2021-04-23] MEDS: INSULIN (LEVEMIR) 100 UNITS/ML UNITS SQ SCH (21:28)
[2021-04-24] MEDS: INSULIN SLIDING SCALE (NOVOLOG) 1 VIAL SQ SCH ×3 (06:31→17:08)
[2021-04-24] MEDS: BUDESONIDE 0.25 MG/2ML INH SUSP VIAL NEB SCH ×2 (08:00→20:30)
[2021-04-24] MEDS: ALBUTEROL SO4 2.5/IPRATROPIUM 0.5 INH SOL 3 ML VIAL.NEB. NEB SCH ×4 (08:00→20:35)
[2021-04-24 08:13] LABS: CHLORIDE 82 mmol/L (98-107); SODIUM 131 mmol/L (136-145)
[2021-04-24 08:18] LABS: CALCIUM 8.4 mg/dL (8.5-10.1)
[2021-04-24 08:19] LABS: BLOOD UREA NITROGEN 21.9 mg/dL (7-18); GLUCOSE,RANDOM 177 mg/dL (74-106); MAGNESIUM 2.4 mg/dL (1.8-2.4)
[2021-04-24 08:23] LABS: CREATININE 0.8 mg/dL (0.55-1.3)
[2021-04-24 08:59] LABS: ANION GAP 4 MMOL/L (8-16); CO2 > 45 mmol/L (21-32)
[2021-04-24] MEDS ORDERED: PT OWN MED DRAWER 7, Y5N ONE ×3 (11:21→20:12)
[2021-04-24] MEDS: FUROSEMIDE 40 MG/4 ML INJECTABLE VIAL IVPUSH SCH (11:24)
[2021-04-24] MEDS: ENOXAPARIN NA (PORCINE) 40 MG/0.4 ML DISP.SYRIN SQ SCH (11:24)
[2021-04-24] MEDS: NEBIVOLOL 10 MG TABLET (FP) PO SCH (11:25)
[2021-04-24] MEDS: ASPIRIN 81 MG CHEWABLE TABLETS PO SCH (11:25)
[2021-04-24] MEDS: amLODIPine BESYLATE 5 MG TABLET (FP) PO SCH (11:25)
[2021-04-24] MEDS: LOSARTAN POTASSIUM 25 MG TABLET PO SCH (11:27)
[2021-04-24] MEDS: guaiFENesin 600 MG TABLET.ER (FP) PO SCH ×2 (11:27→21:17)
[2021-04-24] MEDS: predniSONE 10 MG TABLET (UD) PO SCH (11:27)
[2021-04-24] MEDS: PANTOPRAZOLE 20 MG TABLET PO SCH (11:29)
[2021-04-24] MEDS: MAGNESIUM CL 64 MG TABLET.SA PO SCH (12:19)
[2021-04-24] MEDS: INSULIN (LEVEMIR) 100 UNITS/ML UNITS SQ SCH (21:18)
[2021-04-25] MEDS: INSULIN SLIDING SCALE (NOVOLOG) 1 VIAL SQ SCH ×3 (06:08→18:32)
[2021-04-25 07:26] LABS: CALCIUM 8.9 mg/dL (8.5-10.1)
[2021-04-25 07:30] LABS: CREATININE 0.7 mg/dL (0.55-1.3)
[2021-04-25] MEDS ORDERED: BUDESONIDE 0.5 MG/2 ML INH SUSP VIAL NEB ONE (08:38)
[2021-04-25] MEDS: BUDESONIDE 0.25 MG/2ML INH SUSP VIAL NEB SCH ×2 (08:53→20:10)
[2021-04-25] MEDS: ALBUTEROL SO4 2.5/IPRATROPIUM 0.5 INH SOL 3 ML VIAL.NEB. NEB SCH ×4 (08:55→20:20)
[2021-04-25] MEDS ORDERED: FUROSEMIDE 40 MG TABLET (FP) PO SCH (10:00)
[2021-04-25] MEDS ORDERED: PT OWN MED DRAWER 7, Y5N ONE (11:02)
[2021-04-25] MEDS: MAGNESIUM CL 64 MG TABLET.SA PO SCH (11:07)
[2021-04-25] MEDS: NEBIVOLOL 10 MG TABLET (FP) PO SCH (11:07)
[2021-04-25] MEDS: ENOXAPARIN NA (PORCINE) 40 MG/0.4 ML DISP.SYRIN SQ SCH (11:07)
[2021-04-25] MEDS: ASPIRIN 81 MG CHEWABLE TABLETS PO SCH (11:08)
[2021-04-25] MEDS: amLODIPine BESYLATE 5 MG TABLET (FP) PO SCH (11:08)
[2021-04-25] MEDS: predniSONE 10 MG TABLET (UD) PO SCH (11:08)
[2021-04-25] MEDS: guaiFENesin 600 MG TABLET.ER (FP) PO SCH ×2 (11:13→22:46)
[2021-04-25] MEDS: LOSARTAN POTASSIUM 25 MG TABLET PO SCH (11:16)
[2021-04-25] MEDS ORDERED: INSULIN (NOVOLOG) ASPART 100 UNITS/ML 10ML VIAL SQ ONE (18:30)
[2021-04-25] MEDS: INSULIN (LEVEMIR) 100 UNITS/ML UNITS SQ SCH (22:46)
[2021-04-26] MEDS: INSULIN SLIDING SCALE (NOVOLOG) 1 VIAL SQ SCH ×3 (06:04→17:06)
[2021-04-26] MEDS: BUDESONIDE 0.25 MG/2ML INH SUSP VIAL NEB SCH ×2 (08:20→09:00)
[2021-04-26] MEDS: ALBUTEROL SO4 2.5/IPRATROPIUM 0.5 INH SOL 3 ML VIAL.NEB. NEB SCH ×4 (08:54→19:36)
[2021-04-26] MEDS ORDERED: PT OWN MED DRAWER 7, Y5N ONE ×2 (10:03→20:01)
[2021-04-26] MEDS: predniSONE 10 MG TABLET (UD) PO SCH (10:16)
[2021-04-26] MEDS: guaiFENesin 600 MG TABLET.ER (FP) PO SCH ×2 (10:16→23:16)
[2021-04-26] MEDS: LOSARTAN POTASSIUM 25 MG TABLET PO SCH (10:16)
[2021-04-26] MEDS: NEBIVOLOL 10 MG TABLET (FP) PO SCH (10:16)
[2021-04-26] MEDS: MULTIVITAMINS THER W-MINERALS COMBO TABLET (FP) PO SCH (10:16)
[2021-04-26] MEDS: ASPIRIN 81 MG CHEWABLE TABLETS PO SCH (10:16)
[2021-04-26] MEDS: ENOXAPARIN NA (PORCINE) 40 MG/0.4 ML DISP.SYRIN SQ SCH (10:16)
[2021-04-26] MEDS: MAGNESIUM CL 64 MG TABLET.SA PO SCH (10:17)
[2021-04-26] MEDS: amLODIPine BESYLATE 5 MG TABLET (FP) PO SCH (10:17)
[2021-04-26] MEDS ORDERED: BUDESONIDE 0.5 MG/2 ML INH SUSP VIAL NEB ONE (11:00)
[2021-04-26] MEDS ORDERED: PNEUMOC 13-VAL CONJ-DIP CRM/PF 0.5 ML DISP.SYRIN IM ONE (12:45)
[2021-04-26 14:27] VITALS: BMI 21.7
[2021-04-26] MEDS: INSULIN (LEVEMIR) 100 UNITS/ML UNITS SQ SCH (23:19)
[2021-04-27] MEDS: INSULIN SLIDING SCALE (NOVOLOG) 1 VIAL SQ SCH ×2 (06:42→11:42)
[2021-04-27] MEDS ORDERED: BUDESONIDE 0.5 MG/2 ML INH SUSP VIAL NEB ONE ×2 (07:43→10:42)
[2021-04-27] MEDS: BUDESONIDE 0.25 MG/2ML INH SUSP VIAL NEB SCH (08:35)
[2021-04-27] MEDS: ALBUTEROL SO4 2.5/IPRATROPIUM 0.5 INH SOL 3 ML VIAL.NEB. NEB SCH (08:35)
[2021-04-27] MEDS ORDERED: PT OWN MED DRAWER 7, Y5N ONE (09:02)
[2021-04-27] MEDS: NEBIVOLOL 10 MG TABLET (FP) PO SCH (09:11)
[2021-04-27] MEDS: ASPIRIN 81 MG CHEWABLE TABLETS PO SCH (09:11)
[2021-04-27] MEDS: MAGNESIUM CL 64 MG TABLET.SA PO SCH (09:11)
[2021-04-27] MEDS: ENOXAPARIN NA (PORCINE) 40 MG/0.4 ML DISP.SYRIN SQ SCH (09:12)
[2021-04-27] MEDS: LOSARTAN POTASSIUM 25 MG TABLET PO SCH (09:12)
[2021-04-27] MEDS: guaiFENesin 600 MG TABLET.ER (FP) PO SCH (09:12)
[2021-04-27] MEDS: amLODIPine BESYLATE 5 MG TABLET (FP) PO SCH (09:13)
[2021-04-27] MEDS: MULTIVITAMINS THER W-MINERALS COMBO TABLET (FP) PO SCH (09:19)
[2021-04-27] MEDS ORDERED: predniSONE 10 MG TABLET (UD) PO SCH (10:00)
[2021-04-27] MEDS ORDERED: FUROSEMIDE 40 MG TABLET (FP) PO SCH (10:00)
[2021-04-27 14:56] VITALS: BP 134/54; PULSE 80; TEMP 97.5
[2021-04-28 08:06] LABS: IGA IMMUNOGLOBULIN 108 mg/dL (64-422); IGG QN IMMUNOGLOBULIN 582 mg/dL (586-1602); IGM QN SERUM 26 mg/dL (26-217)
== END 2021-04-27 15:46 | DRG 189 ==
LOC: JER 14:21 → JERBED 19:33 → J4W 04-11 00:42 → J7W 04-19 15:43
PROVIDERS: ADMIT Internal Medicine; ATTEND Internal Medicine
DX: J96.22 Acute and chronic respiratory failure with hypercapnia (principal); I50.33 Acute on chronic diastolic (congestive) heart failure; J44.1 Chronic obstructive pulmonary disease with (acute) exacerbation; E87.1 Hypo-osmolality and hyponatremia; N39.0 Urinary tract infection, site not specified; J96.02 Acute respiratory failure with hypercapnia; E11.9 Type 2 diabetes mellitus without complications; J45.909 Unspecified asthma, uncomplicated; I11.0 Hypertensive heart disease with heart failure; G25.81 Restless legs syndrome; E78.5 Hyperlipidemia, unspecified; E86.0 Dehydration; E87.5 Hyperkalemia; R62.7 Adult failure to thrive; J96.21 Acute and chronic respiratory failure with hypoxia; I25.119 Atherosclerotic heart disease of native coronary artery with unspecified angina pectoris; I27.81 Cor pulmonale (chronic); Z95.1 Presence of aortocoronary bypass graft
CPT/HCPCS: 36415; 36600; 71045-TC-FY; 71250-TC; 71275-TC; 76775-TC; 80048; 80053; 81003; 82550; 82607; 82784; 82803; 82962; 83036; 83735; 83880; 84439; 84443; 84484; 85025; 85027; 87086; 87186; 90670; 93005; 93010; 93306-TC; 94640; 94761; 97116-GP; 97161-GP; 99285-25; C9803; U0003; U0005